=== PATIENT | male | born 1965 | race Caucasian/White ===

== ENCOUNTER 2020-11-08 14:56 | Outpatient (REF) | payer OTHER, SELFPAY ==
[2020-11-08 16:45] LABS: Estimated Average Glucose 108 mg/dL; Hemoglobin A1c % 5.4 %
[2020-11-08 17:07] LABS: Alanine Aminotransferase 36 U/L (0-40); Albumin Level 4.6 g/dL (3.5-5.0); Alkaline Phosphatase 69 U/L (39-117); Anion Gap 18 (12-20); Aspartate Amino Transferase 30 U/L (5-37); Bilirubin Total 0.9 mg/dL (0.0-1.0); Blood Urea Nitrogen 12 mg/dL (9-16); Calcium 9.1 mg/dL (8.4-10.2); Carbon Dioxide 22 mmol/L (22-29); Chloride 103 mmol/L (96-108); Estimated Glomerular Filt Rate > 60; Glucose Random 80 mg/dL (60-115); Potassium 4.9 mmol/l (3.3-5.1); Sodium 138 mmol/L (135-145); Total Protein 7.6 g/dL (6.5-8.0)
== END 2020-11-08 14:57 | disposition home or self-care (01) ==
LOC: HO.HMGCLDS 14:56
PROVIDERS: PCP Internal Medicine; Visit Provider Internal Medicine
DX: I10 Essential (primary) hypertension (principal); R73.09 Other abnormal glucose
CPT/HCPCS: 36415; 80053; 83036

== ENCOUNTER 2021-05-28 15:07 | Outpatient (REF) | payer OTHER, SELFPAY ==
[2021-05-28 16:41] LABS: MANUAL DIFF FLAG NO
[2021-05-28 16:47] LABS: Basophils Absolute Auto 0.1 X10*3/uL (0.0-0.2); Basophils Percent Auto 0.6 % (0-2); Eosinophils Absolute Auto 0.3 X10*3/uL (0.0-0.4); Eosinophils Percent Auto 2.8 % (0-4); Hematocrit 46.2 % (42-52); Hemoglobin 15.8 g/dl (14.0-18.0); Imm Gran Abs Auto 0.11 X10*3/uL (0.00-0.03); Imm Gran Pct Auto 1.2 % (0.0-0.4); Lymphocytes Absolute Auto 2.6 X10*3/uL (1.2-4.9); Lymphocytes Percent Auto 28.1 % (20-40); Mean Corpuscular HGB Conc 34.2 g/dl (31.0-36.0); Mean Corpuscular Hemoglobin 33.3 pg (27.0-33.0); Mean Corpuscular Volume 97.3 fL (80-98); Mean Platelet Volume 10.9 fL (9.4-12.4); Monocytes Absolute Auto 0.8 X10*3/uL (0.1-1.2); Monocytes Percent Auto 8.3 % (2-11); Neutrophils Absolute Auto 5.6 X10*3/uL (2.0-8.3); Platelet Count 276 X10*3/uL (160-400); Red Blood Count 4.75 X10*6/uL (4.60-5.80); Red Cell Distribution Width 12.3 % (11.0-16.0); White Blood Count 9.4 X10*3/uL (4.8-10.8)
[2021-05-28 17:11] LABS: Alanine Aminotransferase 48 U/L (0-40); Albumin Level 4.4 g/dL (3.5-5.0); Alkaline Phosphatase 72 U/L (39-117); Anion Gap 15 (12-20); Aspartate Amino Transferase 37 U/L (5-37); Bilirubin Total 0.9 mg/dL (0.0-1.0); Blood Urea Nitrogen 12 mg/dL (9-16); Calcium 9.3 mg/dL (8.4-10.2); Carbon Dioxide 24 mmol/L (22-29); Chloride 105 mmol/L (96-108); Estimated Glomerular Filt Rate > 60; Glucose Random 80 mg/dL (60-115); Sodium 139 mmol/L (135-145); Total Protein 7.1 g/dL (6.5-8.0)
== END 2021-05-28 15:08 | disposition home or self-care (01) ==
LOC: HO.HMGCLDS 15:07
PROVIDERS: PCP Internal Medicine; Visit Provider Internal Medicine
DX: I10 Essential (primary) hypertension (principal)
CPT/HCPCS: 36415; 80053; 85025

== ENCOUNTER → 2021-07-29 14:51 | Outpatient (BNVA) | payer OTHER, SELFPAY | PROVIDERS: PCP Internal Medicine; Referring Provider Internal Medicine; Visit Provider Internal Medicine ==

== ENCOUNTER → 2021-09-03 13:46 | Outpatient (REF) | payer OTHER, SELFPAY ==
--- NOTE | 2021-09-03 13:52 | CA_ITS ---
Transthoracic Echocardiogram Patient (Last, First, Middle): Mp Gr R Gender: Male Date of : 1965 Age: 55 Procedure Date: 09/03/2021 Procedure Type: Transthoracic Echocardiogram Location: OP Height: 172.72 cm Weight: 89.36 kg BSA: 2.03 m2 Heart Rate: bpm BP: 120 / 58 mmHg Store Loss Prevention Manager: MAURICIO Referring MD: Pa Molina MD Ingot Weigher: Luc Connors MD Symptoms: R09.89 - Other specified symptoms and signs involving the... Study Quality: Fair ECG Rhythm: Sinus Conclusions: - 1. Normal LV systolic function with impaired relaxation filling pattern next 2. Mild aortic stenosis 3. No gross pericardial effusion Findings Left Ventricle Normal left ventricular size and systolic function. There is mildly increased left ventricular wall thickness. The visually estimated ejection fraction is between 60-65%. Spectral Doppler is indicative of an impaired relaxation filling pattern. E/E prime ratio is between 8 and 15 consistent with indeterminate filling pressures. Right Ventricle Normal right ventricular cavity size and systolic function. Atria The left atrium is normal in size. Interatrial shunt cannot be excluded. The right atrium was not well visualized. Aortic Valve The aortic valve was not well visualized. There is mild aortic valve stenosis. The peak aortic gradient is 26 mmHg.The mean gradient is 15 mmHg. The aortic valve area is 1.67 cm2. There is no aortic valve regurgitation. Mitral Valve Likely normal mitral valve structure and function. There is trace mitral valve regurgitation. There is no mitral valve stenosis. Pulmonic Valve The pulmonic valve was not well visualized. Tricuspid Valve The tricuspid valve was not well visualized. Tricuspid regurgitation envelope is inadequate for calculation of right ventricular systolic pressure. Great Vessels All visible segments of the aorta are normal in size. The pulmonary artery was not well visualized. Venous The inferior vena cava is normal in size and collapses greater than 50% with inspiration. Pericardium/Pleural There is no evidence of pericardial effusion. Prior Study Comparison Changes noted compared to prior study dated: 01/24/2017. Mild aortic stenosis is present Measurements 2D Linear Measurements IVSd: 1.18 0.6-0.9/0.6-1.0 cm LVIDd: 3.98 3.9-5.3/4.2-5.9 cm LVIDd Index: 1.96 2.4-3.2/2.2-3.1 cm/m2 LVIDs: 2.51 2.0-3.6 cm LVPWd: 1.08 0.7-1.1 cm Ao Root: 3.30 2.1-3.5 cm LA Diam: 2.80 2.7-3.8/3.0-4.0 cm LAIDs Index: 1.38 1.5-2.3 cm/m2 LV Mass: 187.12 67-162/88-224 g LV Mass Index: 92.18 43-95/49-115 g/m2 LVOT Diam: 2.10 3.0+(-)1.3 cm 2D Systolic Function EF 4C: 63.30 >55% EF 2C: 79.80 >55% EF BiP: 72.40 >55% Mitral Valve MV Pk E: 0.65 MV PK A: 0.75 MV Decel Time: 185.00 E/A: 0.90 E'Lateral: 6.96 E'Medial: 6.53 E/E' Med: 9.90 E/E' Lat: 9.30 PHT: 54.00 MVA PHT: 4.07 Decel [place]: 3.51 Aortic Valve AoV Pk Ace: 2.56 AoV Mn Ace: 1.76 AoV VTI: 0.50 AoV Pk Grad: 26.00 Aov Mn Grad: 15.00 MIGUEL ÁNGEL Cont.VTI: 1.67 AI Pk Ace: 4.45 AI [place]: 1.60 LVOT LVOT Pk Ace: 1.20 LVOT Mn Ace: 0.73 LVOT VTI: 0.24 LVOT Pk Grad: 6.00 LVOT Mn Grad: 3.00 LVOT Diam: 2.10 LVOT Area: 3.46 Diastolic Function MV Pk E: 0.65 MV Pk A: 0.75 E/A: 0.90 E'Medial: 6.53 E/E' Med: 9.90 E' Laterial: 6.96 E/E' Lat: 9.30 Right Ventricle TAPSE (mm): 2.40 Tricuspid Valve RA Press: 3.00 Great Vessels Aorta Ao Root-2D: 3.30 2.0-3.7 cm Ao Asc: 3.20 2.1-3.4 cm Updated in Other Vendor System with Status of Final Luc Connors MD electronically signed on 09/03/2021 4:13:13 PM with status of Final
== END ==
LOC: HO.CARD 13:46
PROVIDERS: PCP Internal Medicine; Visit Provider Internal Medicine
DX: R09.89 Other specified symptoms and signs involving the circulatory and respiratory systems (principal)
CPT/HCPCS: 93306; Q9957

== ENCOUNTER → 2021-10-22 14:17 | Outpatient (BNVA) | payer OTHER, SELFPAY | PROVIDERS: PCP Internal Medicine; Referring Provider Internal Medicine; Visit Provider Internal Medicine ==

== ENCOUNTER → 2022-10-22 14:17 | Outpatient (BNVA) | payer OTHER, SELFPAY | PROVIDERS: PCP Internal Medicine; Referring Provider Internal Medicine; Visit Provider Internal Medicine | DX: I35.0 Nonrheumatic aortic (valve) stenosis (principal); I10 Essential (primary) hypertension | CPT/HCPCS: 93005 ==

== ENCOUNTER 2022-10-24 09:47 | Outpatient (REF) | payer OTHER, SELFPAY ==
[2022-10-24 12:08] LABS: Anion Gap 12 (12-20); Blood Urea Nitrogen 11 mg/dL (9-16); Calcium 9.8 mg/dL (8.4-10.2); Carbon Dioxide 26 mmol/L (22-29); Chloride 106 mmol/L (96-108); Estimated Glomerular Filt Rate > 60; Glucose Random 106 mg/dL (60-115); Potassium 5.1 mmol/L (3.3-5.1); Sodium 139 mmol/L (135-145)
== END 2022-10-24 09:48 | disposition home or self-care (01) ==
LOC: HO.HMGCLDS 09:47
PROVIDERS: PCP Internal Medicine; Visit Provider Internal Medicine
DX: I10 Essential (primary) hypertension (principal)
CPT/HCPCS: 36415; 80048

== ENCOUNTER 2023-02-09 14:09 | Outpatient (REF) | payer OTHER, SELFPAY | END 2023-02-09 14:10 | disposition home or self-care (01) | LOC: HO.SH 14:09 | PROVIDERS: Visit Provider Internal Medicine | DX: Z01.118 Encounter for examination of ears and hearing with other abnormal findings (principal); H90.3 Sensorineural hearing loss, bilateral | CPT/HCPCS: 92557; 92567 ==

== ENCOUNTER 2023-06-17 14:22 | Outpatient (REF) | payer OTHER, SELFPAY ==
[2023-06-17 16:20] LABS: Alanine Aminotransferase 32 U/L (0-40); Albumin Level 4.3 g/dL (3.5-5.0); Alkaline Phosphatase 71 U/L (39-117); Anion Gap 13 (12-20); Aspartate Amino Transferase 26 U/L (5-37); Blood Urea Nitrogen 12 mg/dL (9-16); Calcium 9.1 mg/dL (8.4-10.2); Carbon Dioxide 25 mmol/L (22-29); Chloride 107 mmol/L (96-108); Estimated Glomerular Filt Rate > 60; Glucose Random 86 mg/dL (60-115); Potassium 4.6 mmol/L (3.3-5.1); Sodium 140 mmol/L (135-145); Total Protein 7.2 g/dL (6.5-8.0)
== END 2023-06-17 14:23 | disposition home or self-care (01) ==
LOC: HO.HMGCLDS 14:22
PROVIDERS: PCP Internal Medicine; Visit Provider Internal Medicine
DX: I10 Essential (primary) hypertension (principal)
CPT/HCPCS: 36415; 80053

== ENCOUNTER 2023-07-03 14:06 | Outpatient (AMB) | payer OTHER, SELFPAY ==
[2023-07-03 14:07] VITALS: BP 134/62; PULSE 76; O2SAT 97; BMI 30.6
--- NOTE | 2023-07-03 14:07 | MHC.PC.OV ---
Vital Signs 07/03/23 14:07 Height 5 ft 8 in Weight 201 lb 6 oz BMI 30.6 BP 134/62 Blood Pressure Location Rt brachial Position Sitting Pulse 76 Pulse Source Pulse Oximeter Pulse Oximetry (%) 97 Oxygen Delivery Method Room Air Intake Visit Reasons: 4m follow up Allergies No Known Allergies Allergy (Unknown, Verified 07/03/23 14:08) Medication List - Last Reconciled 07/03/23 by Tonya Boucher MD albuterol sulfate 90 mcg/actuation (Ventolin HFA) 1 inh inhalation QID PRN 30 days amlodipine 10 mg PO DAILY aspirin (Adult Low Dose Aspirin) 81 mg PO DAILY atenolol 25 mg PO DAILY 90 days lisinopril 40 mg PO DAILY Tobacco use date assessed: 07/03/23 Dental Screening Dental Screen Date: 07/03/23 Did you have a dental visit in the last 12 months?: No Did you have a dental problem in the last 6 months where you did not have access to dental care?: No Was dental information given to patient?: No HPI 4m follow up HPI Details Patient is a 57-year-old gentleman came in today for his regular follow-up appointment Labs done recently reviewed with the patient Patient has stop smoking it has been 2 days, he is feeling jittery and restless I have sent Xanax 0.25 mg tablets to be taken up to 2 times a day as needed just to get him through this jittery phase. Patient was notified the medication will cause some drowsiness, do not drive or work with machine while taking this medication. And this is a temporary medication we will not be continuing it for the long-term use. Blood pressure is stable today he is on amlodipine 10 mg, atenolol 25 mg and lisinopril 40 mg, tolerating medication no side effect Still has not been able to schedule colonoscopy I have sent message to Gastroenterology office BMI is elevated at 30.6 patient need to lose weight Patient has appointment in December for physical examination he will return then. [facility] Medical History Fluctuating blood pressure Pre-diabetes Surgical History H/O hemorrhoidectomy Family History Sister Cardiovascular disorder Father Heart attack Social History Housing: Apartment Alcohol intake: never Patient Tobacco Use Status: Current everyday Tobacco user Tobacco use type: Cigarette Cigarettes Per Day: 10 Years Smoked: 40 years Packs per year/per ci.00 e-Cigarette/Vaping Use: Never Used service: No Current occupational status: employed Cognitive needs: No Hearing needs: No Vision needs: Yes Questionnaire PHQ-9 Over the last 2 weeks, how often have you been bothered by any of the following problems? 1. Little interest or pleasure in doing things: not at all 2. Feeling down, depressed, or hopeless: not at all 3. Trouble falling or staying asleep, or sleeping too much: not at all 4. Feeling tired or having little energy: not at all 5. Poor appetite or overeating: not at all 6. Feeling bad about yourself - or that you are a failure or have let yourself or your family down: not at all 7. Trouble concentrating on things, such as reading the newspaper or watching television: not at all 8. Moving or speaking so slowly that other people could have noticed. Or the opposite - being so fidgety or restless that you have been moving around a lot more than usual: not at all 9. Thoughts that you would be better off or of hurting yourself in some way: not at all Total score: 0 Depression Screening Interpretation: Negative 16143 - PHQ-9 Billing: Yes Source: Developed by Drs. Anthony Khoury, Ned Worthy and colleagues, with an educational aden from [employer]. Thrive Questionnaire Date Thrive assessed: 12/02/22 AUDIT C Alcohol Use Questionnaire (AUDIT-C) 1. How often do you have a drink containing alcohol?: Monthly or less 2. How many drinks containing alcohol do you have on a typical day when you are drinking?: 1 or 2 3. How often do you have six or more drinks on one occasion?: Never Total Score: 1 Score Reviewed/Action Taken: Yes LESIA-7 AMB Questionnaire LESIA-7 Date LESIA - 7 assessed: 12/02/22 Source: Developed by Drs. Anthony L. Leanna Khoury, Ned Lovell and colleagues, with an educational aden from [employer]. Review of Systems Const Denies chills and Denies fever(s) ENT Denies epistaxis and Denies nasal discharge Card Denies chest pain Resp Denies chest congestion, Denies cough and Denies hemoptysis GI Denies diarrhea and Denies nausea Skin/Breast Denies rash Neuro Reports no additional complaints Psych Reports no additional complaints Endo Reports no additional complaints Physical exam (Primary Care) Vital Signs: Last Vital Signs Pulse 76 07/03/23 14:07 BP 134/62 07/03/23 14:07 Pulse Ox 97 07/03/23 14:07 Oxygen Delivery Method Room Air 07/03/23 14:07 BMI result Body Mass Index 30.6 Tobacco/Smoking Status: Tobacco use Status Tobacco use date assessed 07/03/23 07/03/23 14:08 Patient Tobacco Use Status Current everyday Tobacco 07/03/23 14:08 Tobacco use type Cigarette 07/03/23 14:08 e-Cigarette/Vaping Use Never Used 07/03/23 14:08 PHQ-9: PHQ-9 Score PHQ-9: Total score 0 07/03/23 14:28 Depression Screening Interpretation: Negative Thrive Assessment: Date of Thrive Assessment Date Thrive assessed 12/02/22 07/03/23 14:08 Const General: cooperative, comfortable and no acute distress Orientation/consciousness: patient oriented x3 HENMT Head: Yes normocephalic Eyes General: appearance normal, both eyes and all related structures Neck Neck: Yes supple Resp Effort & Inspection: normal respiratory effort, no cough and no stridor Cardio Rhythm: regular rhythm Heart sounds: S1 normal heart sound present and S2 normal heart sound present Skin General skin exam: turgor normal Neuro General: patient oriented x3, tone normal and moves all extremities Extrem Right lower extremity: no edema Left lower extremity: no edema Assessment and Plan Assessment & Plan (1) Hypertension, essential: Code(s): I10 - Essential (primary) hypertension (2) Obesity due to excess calories: Code(s): E66.09 - Other obesity due to excess calories Qualifiers: Body mass index: BMI 30.0-30.9 Obesity classification: adult class 1 (BMI 30 - 34.9) Serious obesity comorbidity presence: with serious comorbidity Qualified Code(s): E66.09 - Other obesity due to excess calories; Z68.30 - Body mass index [BMI] 30.0-30.9, adult (3) Restlessness and agitation: Code(s): R45.1 - Restlessness and agitation Plan Patient is a 57-year-old gentleman came in today for his regular follow-up appointment Labs done recently reviewed with the patient Patient has stop smoking it has been 2 days, he is feeling jittery and restless I have sent Xanax 0.25 mg tablets to be taken up to 2 times a day as needed just to get him through this jittery phase. Patient was notified the medication will cause some drowsiness, do not drive or work with machine while taking this medication. And this is a temporary medication we will not be continuing it for the long-term use. Blood pressure is stable today he is on amlodipine 10 mg, atenolol 25 mg and lisinopril 40 mg, tolerating medication no side effect Still has not been able to schedule colonoscopy I have sent message to Gastroenterology office BMI is elevated at 30.6 patient need to lose weight Patient has appointment in December for physical examination he will return then. Medications: New alprazolam (Xanax) 0.25 mg PO BID PRN 20 tabs 0RF Restlessness 10 days Coding Level of Care Code Est Pt Level 3 (98123) Diagnoses Hypertension, essential I10 Obesity due to excess calories E66.09; Z68.30 Body mass index: BMI 30.0-30.9 Obesity classification: adult class 1 (BMI 30 - 34.9) Serious obesity comorbidity presence: with serious comorbidity Restlessness and agitation R45.1
== END 2023-07-03 14:24 | disposition home or self-care (01) ==
PROVIDERS: Visit Provider Internal Medicine
DX: I10 Essential (primary) hypertension (principal); E66.09 Other obesity due to excess calories; Z68.30 Body mass index [BMI] 30.0-30.9, adult; R45.1 Restlessness and agitation
CPT/HCPCS: 99213

== ENCOUNTER → 2023-09-21 14:40 | Outpatient (BNVA) | payer OTHER, SELFPAY | PROVIDERS: PCP Internal Medicine; Visit Provider Nurse Practitioner Family ==

== ENCOUNTER 2023-12-04 14:26 | Outpatient (AMB) | payer OTHER, SELFPAY ==
--- NOTE | 2023-12-04 14:29 | MHC.PC.OV ---
Vital Signs 12/04/23 14:34 Height 5 ft 8 in Weight 204 lb 2 oz BMI 31.0 BP 148/68 H Blood Pressure Location Rt brachial Position Sitting Pulse 91 Pulse Source Pulse Oximeter Pulse Oximetry (%) 98 Oxygen Delivery Method Room Air Intake Visit Reasons: PE Allergies No Known Allergies Allergy (Unknown, Verified 12/04/23 14:36) Medication List - Last Reconciled 12/04/23 by Tonya Boucher MD amlodipine 10 mg PO DAILY aspirin (Adult Low Dose Aspirin) 81 mg PO DAILY atenolol 25 mg PO DAILY 90 days lisinopril 40 mg PO DAILY Tobacco use date assessed: 12/04/23 HPI PE HPI Details Patient is 58-year-old gentleman came in today physical examination Blood pressure is slightly elevated however patient is taking all his medications He is due for labs, order placed patient notified to do it fasting He is feeling sick today with a sore throat that started last night Having slight chills and cough which is mostly dry We have taken COVID and flu test further management after the report Meanwhile patient may take [id number] cough syrup tell some 1 tsp b.i.d. And Tylenol as needed for aches and pains, push fluids and rest Patient is requesting Chantix script, he has taken it in the past and did well [facility] Medical History Fluctuating blood pressure Pre-diabetes Surgical History Hx of colonoscopy H/O hemorrhoidectomy Family History Sister Cardiovascular disorder Father Heart attack Social History Housing: Apartment Alcohol intake: never Patient Tobacco Use Status: Current everyday Tobacco user Tobacco use type: Cigarette Cigarettes Per Day: 10 Years Smoked: 40 years Packs per year/per ci.00 e-Cigarette/Vaping Use: Never Used service: No Current occupational status: employed Cognitive needs: No Hearing needs: No Vision needs: Yes Questionnaire Thrive Questionnaire Date Thrive assessed: 12/02/22 LESIA-7 AMB Questionnaire LESIA-7 Date LESIA - 7 assessed: 01/31/23 Source: Developed by Drs. Anthony Khoury, Leanna Dominguez, Ned Lovell and colleagues, with an educational aden from [employer]. Review of Systems Const Denies headache(s) Eyes Denies blurry vision ENT Denies headache(s), Denies nasal discharge, Denies nasal obstruction, Denies odynophagia and Denies sinus pain Card Denies chest pain at rest and Denies chest pain with activity Resp Denies hemoptysis GI Denies diarrhea, Denies odynophagia, Denies vomiting and Denies hematemesis Reports as per HPI Musc Denies abnormal gait Skin/Breast Reports as per HPI Neuro Denies Neuro-related abnormal movements, Denies Abnormal speech present, Denies abnormal gait, Denies headache(s) and Denies Sensory deficit (Neuro) Psych Denies mood swings and Denies paranoia Endo Reports as per HPI Leonel/Lymph Reports as per HPI Aller/Immun Reports as per HPI Physical exam (Primary Care) Vital Signs: Last Vital Signs Pulse 91 12/04/23 14:34 BP 148/68 H 12/04/23 14:34 Pulse Ox 98 12/04/23 14:34 Oxygen Delivery Method Room Air 12/04/23 14:34 BMI result Body Mass Index 31.0 Tobacco/Smoking Status: Tobacco use Status Tobacco use date assessed 12/04/23 12/04/23 14:37 Patient Tobacco Use Status Current everyday Tobacco 12/04/23 14:30 Tobacco use type Cigarette 12/04/23 14:30 e-Cigarette/Vaping Use Never Used 12/04/23 14:30 Thrive Assessment: Date of Thrive Assessment Date Thrive assessed 12/02/22 12/04/23 14:30 Const General: cooperative, comfortable and no acute distress Orientation/consciousness: patient oriented x3 HENMT Head: Yes normocephalic and Yes atraumatic Eyes General: appearance normal, both eyes and all related structures Pupils: Equal, round and reactive pupils present EOM: EOMs intact bilaterally Neck Neck: Yes supple and No lymphadenopathy Thyroid: Thyroid normal Lymphatic: no lymphadenopathy noted Resp Effort & Inspection: normal respiratory effort and able to speak in complete sentences Auscultation: clear to auscultation bilaterally Cardio Heart sounds: S1 normal heart sound present and S2 normal heart sound present GI Palpation (GI): Soft to palpation and nontender Auscultation: normal bowel sounds General: Yes no CVA tenderness Back/Spine/Pelvis Back: no CVA tenderness Skin General skin exam: elasticity normal and turgor normal Neuro General: patient oriented x3 and gait normal Cranial nerves: Yes Equal, round and reactive pupils present Speech: No Abnormal speech present Sensory Exam: No Sensory deficit (Neuro) Coordination: tandem gait normal and Romberg test negative Extrem General: Yes normal exam except as noted and No edema Assessment and Plan Assessment & Plan (1) Encounter for general adult medical examination with abnormal findings: Code(s): Z00.01 - Encounter for general adult medical examination with abnormal findings (2) Hypertension, essential: Code(s): I10 - Essential (primary) hypertension (3) Tobacco abuse: Code(s): Z72.0 - Tobacco use (4) Obesity due to excess calories: Code(s): E66.09 - Other obesity due to excess calories Qualifiers: Body mass index: BMI 30.0-30.9 Obesity classification: adult class 1 (BMI 30 - 34.9) Serious obesity comorbidity presence: with serious comorbidity Qualified Code(s): E66.09 - Other obesity due to excess calories; Z68.30 - Body mass index [BMI] 30.0-30.9, adult (5) URI (upper respiratory infection): Code(s): J06.9 - Acute upper respiratory infection, unspecified Qualifiers: URI type: unspecified viral URI Qualified Code(s): J06.9 - Acute upper respiratory infection, unspecified Plan Patient is 58-year-old gentleman came in today physical examination Blood pressure is slightly elevated however patient is taking all his medications He is due for labs, order placed patient notified to do it fasting He is feeling sick today with a sore throat that started last night Having slight chills and cough which is mostly dry We have taken COVID and flu test further management after the report Meanwhile patient may take [id number] cough syrup tell some 1 tsp b.i.d. And Tylenol as needed for aches and pains, push fluids and rest Patient is requesting Chantix script, he has taken it in the past and did well Orders: Orders Comprehensive [place]. Panel Fast Today E66.09 - Other obesity due to excess calories, I10 - Essential (primary) hypertension, Z00.01 - Encounter for general adult medical examination with abnormal findings, Z72.0 - Tobacco use Lipid Panel Today E66.09 - Other obesity due to excess calories, I10 - Essential (primary) hypertension, Z00.01 - Encounter for general adult medical examination with abnormal findings, Z72.0 - Tobacco use Complete Blood Count Auto Diff Today E66.09 - Other obesity due to excess calories, I10 - Essential (primary) hypertension, Z00.01 - Encounter for general adult medical examination with abnormal findings, Z72.0 - Tobacco use SARS-CoV2/FLU/RSV Today R09.89 - Other specified symptoms and signs involving the circulatory and respiratory systems Medications: New varenicline (Chantix Starting Month Box) PO PER PKG DIR 53 ea 0RF Coding Level of Care Code Est Pt Prev Care 40-64y(58974) Diagnoses Encounter for general adult medical examination with abnormal findings Z00.01 Hypertension, essential I10 Tobacco abuse Z72.0 Class 1 obesity due to excess calories with serious comorbidity and body mass index (BMI) of 30.0 to 30.9 in adult E66.09; Z68.30 Body mass index: BMI 30.0-30.9 Obesity classification: adult class 1 (BMI 30 - 34.9) Serious obesity comorbidity presence: with serious comorbidity Viral upper respiratory tract infection J06.9 URI type: unspecified viral URI
[2023-12-04 14:34] VITALS: BP 148/68; PULSE 91; O2SAT 98; BMI 31.0
== END 2023-12-04 16:21 | disposition home or self-care (01) ==
PROVIDERS: Visit Provider Internal Medicine
DX: Z00.00 Encounter for general adult medical examination without abnormal findings (principal); I10 Essential (primary) hypertension; Z68.30 Body mass index [BMI] 30.0-30.9, adult; J06.9 Acute upper respiratory infection, unspecified; Z72.0 Tobacco use; E66.09 Other obesity due to excess calories
CPT/HCPCS: 99396

== ENCOUNTER 2023-12-04 17:07 | Outpatient (REF) | payer OTHER, SELFPAY ==
[2023-12-04 17:56] LABS: Influenza A PCR NEGATIVE (Negative); Influenza B PCR NEGATIVE (Negative); Resp Syncy Virus RNA Qual PCR NEGATIVE (Negative); SARS COV2 PCR INHOUSE POSITIVE (Negative)
== END 2023-12-04 17:08 | disposition home or self-care (01) ==
LOC: HO.LNP 17:07
PROVIDERS: Visit Provider Internal Medicine
DX: Z11.52 Encounter for screening for COVID-19 (principal); Z20.822 Contact with and (suspected) exposure to COVID-19; R09.89 Other specified symptoms and signs involving the circulatory and respiratory systems
CPT/HCPCS: 0241U

== ENCOUNTER 2024-01-02 08:12 | Outpatient (REF) | payer OTHER, SELFPAY ==
[2024-01-02 11:47] LABS: MANUAL DIFF FLAG NO
[2024-01-02 12:00] LABS: Basophils Percent Auto 0.8 % (0-2); Eosinophils Absolute Auto 0.2 X10*3/uL (0.0-0.4); Eosinophils Percent Auto 4.6 % (0-4); Hematocrit 51.9 % (42.0-52.0); Hemoglobin 17.9 g/dl (14.0-18.0); Imm Gran Abs Auto 0.02 X10*3/uL (0.00-0.03); Imm Gran Pct Auto 0.4 % (0.0-0.4); Lymphocytes Absolute Auto 1.7 X10*3/uL (1.2-4.9); Lymphocytes Percent Auto 31.8 % (20-40); Mean Corpuscular HGB Conc 34.5 g/dl (31.0-36.0); Mean Corpuscular Hemoglobin 34.9 pg (27.0-33.0); Mean Corpuscular Volume 101.2 fL (80.0-98.0); Mean Platelet Volume 10.4 fL (9.4-12.4); Monocytes Absolute Auto 0.6 X10*3/uL (0.1-1.2); Monocytes Percent Auto 11.3 % (2-11); Neutrophils Absolute Auto 2.7 x10*3/uL (2.0-8.3); Neutrophils Percent Auto 51.1 % (45-73); Platelet Count 190 X10*3/uL (160-400); Red Blood Count 5.13 X10*6/uL (4.60-5.80); Red Cell Distribution Width 14.5 % (11.0-16.0); White Blood Count 5.2 X10*3/uL (4.8-10.8)
[2024-01-02 12:14] LABS: Alanine Aminotransferase 27 U/L (0-40); Alkaline Phosphatase 93 U/L (39-117); Anion Gap 12 (12-20); Aspartate Amino Transferase 26 U/L (5-37); Bilirubin Total 0.8 mg/dL (0.0-1.0); Blood Urea Nitrogen 9 mg/dL (9-16); Calcium 9.4 mg/dL (8.4-10.2); Carbon Dioxide 25 mmol/L (22-29); Chloride 109 mmol/L (96-108); Cholesterol 146 mg/dL (<200); Estimated Glomerular Filt Rate > 60; Glucose Fasting 119 mg/dL (60-99); HDL Cholesterol 39 mg/dL (>40); LDL Cholesterol Calculated 86 mg/dL (<100); Potassium 4.7 mmol/L (3.3-5.1); Sodium 141 mmol/L (135-145); Triglycerides 109 mg/dL (<150)
== END 2024-01-02 08:13 | disposition home or self-care (01) ==
LOC: HO.HMGCLDS 08:12
PROVIDERS: PCP Internal Medicine; Visit Provider Internal Medicine
DX: Z00.01 Encounter for general adult medical examination with abnormal findings (principal); I10 Essential (primary) hypertension; E66.09 Other obesity due to excess calories; Z72.0 Tobacco use
CPT/HCPCS: 36415; 80053; 80061; 85025

== ENCOUNTER 2024-01-27 15:10 | Outpatient (AMB) | payer OTHER, SELFPAY ==
[2024-01-27 15:13] VITALS: BP 138/62; PULSE 79; O2SAT 96; BMI 30.4
--- NOTE | 2024-01-27 15:13 | MHC.PC.OV ---
Vital Signs 01/27/24 15:13 Height 5 ft 8 in Weight 200 lb 2 oz BMI 30.4 BP 138/62 Blood Pressure Location Rt brachial Position Sitting Pulse 79 Pulse Source Pulse Oximeter Pulse Oximetry (%) 96 Oxygen Delivery Method Room Air Intake Visit Reasons: F/u ~ Allergies No Known Allergies Allergy (Unknown, Verified 01/27/24 15:13) Medication List - Last Reconciled 01/27/24 by Tonya Boucher MD amlodipine 10 mg PO DAILY aspirin (Adult Low Dose Aspirin) 81 mg PO DAILY atenolol 25 mg PO DAILY 90 days lisinopril 40 mg PO DAILY varenicline (Chantix Starting Month Box) PO PER PKG DIR Tobacco use date assessed: 01/27/24 Dental Screening Dental Screen Date: 01/27/24 Did you have a dental visit in the last 12 months?: Yes Did you have a dental problem in the last 6 months where you did not have access to dental care?: No Was dental information given to patient?: Patient has dentist HPI F/u ~ HPI Details Patient is 58-year-old gentleman came in today for his follow-up appointment He was started on Chantix last visit he is doing very well he is now down to 6 cigarettes a day I have sent continuing Chantix pack, patient may continue that until seen next in 4 months Labs done recently reviewed with the patient His fasting sugar came back at 119, he does have a family history of diabetes We talked about the diet-controlled His BMI is elevated need to lose some weight Blood pressure is stable patient is taking amlodipine 10 mg, and atenolol 25 mg along with lisinopril 40 mg No side effects. Patient will return in 4 months for follow-up appointment [facility] Medical History Fluctuating blood pressure Pre-diabetes Surgical History Hx of colonoscopy H/O hemorrhoidectomy Family History Sister Cardiovascular disorder Father Heart attack Social History Housing: Apartment Alcohol intake: never Patient Tobacco Use Status: Current everyday Tobacco user Tobacco use type: Cigarette Cigarettes Per Day: 10 Years Smoked: 40 years e-Cigarette/Vaping Use: Never Used service: No Current occupational status: employed Cognitive needs: No Hearing needs: No Vision needs: Yes Questionnaire Thrive Questionnaire Date Thrive assessed: 12/02/22 LESIA-7 AMB Questionnaire LESIA-7 Date LESIA - 7 assessed: 12/02/22 Source: Developed by Drs. Anthony Khoury, Leanna Dominguez, Ned Lovell and colleagues, with an educational aden from [employer]. Review of Systems Const Denies chills and Denies fever(s) ENT Denies epistaxis and Denies nasal discharge Card Denies chest pain Resp Denies chest congestion, Denies cough and Denies hemoptysis GI Denies diarrhea and Denies nausea Skin/Breast Denies rash Neuro Reports no additional complaints Psych Reports no additional complaints Endo Reports no additional complaints Physical exam (Primary Care) Vital Signs: Last Vital Signs Pulse 79 01/27/24 15:13 BP 138/62 01/27/24 15:13 Pulse Ox 96 01/27/24 15:13 Oxygen Delivery Method Room Air 01/27/24 15:13 BMI result Body Mass Index 30.4 Tobacco/Smoking Status: Tobacco use Status Tobacco use date assessed 01/27/24 01/27/24 15:18 Patient Tobacco Use Status Current everyday Tobacco 01/27/24 15:18 Tobacco use type Cigarette 01/27/24 15:18 e-Cigarette/Vaping Use Never Used 01/27/24 15:18 Thrive Assessment: Date of Thrive Assessment Date Thrive assessed 12/02/22 01/27/24 15:18 Const General: cooperative, comfortable and no acute distress Orientation/consciousness: patient oriented x3 HENMT Head: Yes normocephalic Eyes General: appearance normal, both eyes and all related structures Neck Neck: Yes supple Resp Effort & Inspection: normal respiratory effort, no cough and no stridor Cardio Rhythm: regular rhythm Heart sounds: S1 normal heart sound present and S2 normal heart sound present Skin General skin exam: turgor normal Neuro General: patient oriented x3, tone normal and moves all extremities Extrem Right lower extremity: no edema Left lower extremity: no edema Assessment and Plan Assessment & Plan (1) Hypertension, essential: Code(s): I10 - Essential (primary) hypertension (2) Tobacco abuse: Code(s): Z72.0 - Tobacco use (3) Obesity due to excess calories: Code(s): E66.09 - Other obesity due to excess calories Qualifiers: Obesity classification: adult class 1 (BMI 30 - 34.9) Serious obesity comorbidity presence: with serious comorbidity Body mass index: BMI 30.0-30.9 Qualified Code(s): E66.09 - Other obesity due to excess calories; Z68.30 - Body mass index [BMI] 30.0-30.9, adult (4) Pre-diabetes: Code(s): R73.03 - Prediabetes Plan Patient is 58-year-old gentleman came in today for his follow-up appointment He was started on Chantix last visit he is doing very well he is now down to 6 cigarettes a day I have sent continuing Chantix pack, patient may continue that until seen next in 4 months Labs done recently reviewed with the patient His fasting sugar came back at 119, he does have a family history of diabetes We talked about the diet-controlled His BMI is elevated need to lose some weight Blood pressure is stable patient is taking amlodipine 10 mg, and atenolol 25 mg along with lisinopril 40 mg No side effects. Patient will return in 4 months for follow-up appointment Medications: New varenicline (Chantix Continuing Month Box) 1 mg PO BID 90 days 180 tabs 0RF Discontinued varenicline (Chantix Starting Month Box) Discontinued Reason: Patient Completed Course PO PER PKG DIR 53 ea 0RF Coding Level of Care Code Est Pt Level 3 (74643) Diagnoses Hypertension, essential I10 Tobacco abuse Z72.0 Class 1 obesity due to excess calories with serious comorbidity and body mass index (BMI) of 30.0 to 30.9 in adult E66.09; Z68.30 Obesity classification: adult class 1 (BMI 30 - 34.9) Serious obesity comorbidity presence: with serious comorbidity Body mass index: BMI 30.0-30.9 Pre-diabetes R73.03
== END 2024-01-27 15:31 | disposition home or self-care (01) ==
PROVIDERS: PCP Internal Medicine; Visit Provider Internal Medicine
DX: I10 Essential (primary) hypertension (principal); Z72.0 Tobacco use; E66.09 Other obesity due to excess calories; Z68.30 Body mass index [BMI] 30.0-30.9, adult; R73.03 Prediabetes
CPT/HCPCS: 99213

== ENCOUNTER 2024-06-01 14:50 | Outpatient (AMB) | payer OTHER, SELFPAY ==
[2024-06-01 14:52] VITALS: BP 120/58; PULSE 63; O2SAT 96; BMI 30.6
--- NOTE | 2024-06-01 14:52 | A.OFFPC_ITS ---
Vital Signs 06/01/24 14:52 Height 5 ft 8 in Weight 201 lb 2 oz BMI 30.6 BP 120/58 L Blood Pressure Location Rt brachial Position Sitting Pulse 63 Pulse Source Pulse Oximeter Pulse Oximetry (%) 96 Oxygen Delivery Method Room Air Intake Visit Reasons: 3 month follow up Allergies No Known Allergies Allergy (Unknown, Verified 06/01/24 14:54) Medication List - Last Reconciled 06/01/24 by Tonya Boucher MD amlodipine 10 mg PO DAILY aspirin (Adult Low Dose Aspirin) 81 mg PO DAILY atenolol 25 mg PO DAILY 90 days lisinopril 40 mg PO DAILY varenicline (Chantix Continuing Month Box) 1 mg PO BID 90 days Tobacco use date assessed: 06/01/24 Dental Screening Dental Screen Date: 06/01/24 Did you have a dental visit in the last 12 months?: No Did you have a dental problem in the last 6 months where you did not have access to dental care?: No Was dental information given to patient?: No HPI 3 month follow up HPI Details Patient is 58-year-old gentleman came in today for his follow-up appointment Tobacco use disorder: he did well with Chantix and then he stopped using it and started smoking again patient says that he has no excuse he started Chantix again and is requesting a refill. Currently he is smoking about 5 cigarettes a day Labs needed before next visit order placed to be done fasting Patient is prediabetic, we are monitoring his sugar BMI is elevated I would strongly recommend for him to lose some weight and control his diet Blood pressure is stable patient is taking amlodipine 10 mg, and atenolol 25 mg along with lisinopril 40 mg No side effects. Patient will return in 4 months for follow-up appointment [facility] Medical History Fluctuating blood pressure Pre-diabetes Surgical History Hx of colonoscopy H/O hemorrhoidectomy Family History Sister Cardiovascular disorder Father Heart attack Social History Housing: Apartment Alcohol intake: never Patient Tobacco Use Status: Current everyday Tobacco user Tobacco use type: Cigarette Cigarettes Per Day: 10 Years Smoked: 40 years e-Cigarette/Vaping Use: Never Used service: No Current occupational status: employed Cognitive needs: No Hearing needs: No Vision needs: Yes Questionnaire PHQ-9 Over the last 2 weeks, how often have you been bothered by any of the following problems? 1. Little interest or pleasure in doing things: not at all 2. Feeling down, depressed, or hopeless: not at all 3. Trouble falling or staying asleep, or sleeping too much: not at all 4. Feeling tired or having little energy: not at all 5. Poor appetite or overeating: not at all 6. Feeling bad about yourself - or that you are a failure or have let yourself or your family down: not at all 7. Trouble concentrating on things, such as reading the newspaper or watching television: not at all 8. Moving or speaking so slowly that other people could have noticed. Or the opposite - being so fidgety or restless that you have been moving around a lot more than usual: not at all 9. Thoughts that you would be better off or of hurting yourself in some way: not at all Total score: 0 Depression Screening Interpretation: Negative Depression Screening Done: Yes 71205 - PHQ-9 Billing: Yes Source: Developed by Drs. Anthony Khoury, Leanna Dominguez, Ned Lovell and colleagues, with an educational aden from [employer]. Thrive Questionnaire Date Thrive assessed: 06/01/24 I am a: Patient What is your living situation today?: I have a steady place to live Within the past 12 months, did the food you bought not last and you didn't have the money to get more?: Never true Within the past 12 months, did you worry whether your food would run out before you got money to buy more?: Never true Do you have trouble paying for medicines?: No Do you have trouble getting transportation to medical appointments?: No Do you have trouble paying your heating and electricity bill?: No Do you have trouble taking care of your child, family member or friend?: No Do you have trouble with day-to-day activities such as bathing, preparing meals, shopping, managing finances, etc.?: No Are you currently unemployed and looking for a job?: No Are you interested in more education?: No Please select the resources that you would like help with: Housing/Retirement Currently or been in a relationship where the following occur: No concerns reported THRIVE Score: 0 AUDIT C Alcohol Use Questionnaire (AUDIT-C) 1. How often do you have a drink containing alcohol?: 2-4 times a month 2. How many drinks containing alcohol do you have on a typical day when you are drinking?: 1 or 2 3. How often do you have six or more drinks on one occasion?: Never Total Score: 2 Score Reviewed/Action Taken: Yes LESIA-7 AMB Questionnaire LESIA-7 Date LESIA - 7 assessed: 06/01/24 Feeling nervous, anxious, or on edge: 0 = Not at all Not being able to stop or control worryin = Not at all Worrying too much about different things: 0 = Not at all Trouble relaxin = Not at all Being so restless that it is hard to sit still: 0 = Not at all Becoming easily annoyed or irritable: 0 = Not at all Feeling afraid as if something awful might happen: 0 = Not at all Total LESIA-7 score (0-4 normal; 5-9 mild; 10-14 moderate; 15-21 severe): 0 Source: Developed by Drs. Anthony Khoury, Leanna Dominguez, Ned Lovell and colleagues, with an educational aden from [employer]. LESIA-7 Assessment Billing LESIA-7 Assessment Tool: LESIA-7 Assessment 90377 Review of Systems Const Denies chills and Denies fever(s) ENT Denies epistaxis and Denies nasal discharge Card Denies chest pain Resp Denies chest congestion, Denies cough and Denies hemoptysis GI Denies diarrhea and Denies nausea Skin/Breast Denies rash Neuro Reports no additional complaints Psych Reports no additional complaints Endo Reports no additional complaints Physical exam (Primary Care) Vital Signs: Last Vital Signs Pulse 63 06/01/24 14:52 BP 120/58 L 06/01/24 14:52 Pulse Ox 96 06/01/24 14:52 Oxygen Delivery Method Room Air 06/01/24 14:52 BMI result Body Mass Index 30.6 Tobacco/Smoking Status: Tobacco use Status Tobacco use date assessed 06/01/24 06/01/24 14:54 Patient Tobacco Use Status Current everyday Tobacco 06/01/24 14:54 Tobacco use type Cigarette 06/01/24 14:54 e-Cigarette/Vaping Use Never Used 06/01/24 14:54 PHQ-9: PHQ-9 Score PHQ-9: Total score 0 06/01/24 14:54 Depression Screening Interpretation: Negative Thrive Assessment: Date of Thrive Assessment Date Thrive assessed 06/01/24 06/01/24 14:54 Currently or been in a relationship where the following occur: No concerns reported Const General: cooperative, comfortable and no acute distress Orientation/consciousness: patient oriented x3 HENMT Head: Yes normocephalic Eyes General: appearance normal, both eyes and all related structures Neck Neck: Yes supple Resp Effort & Inspection: normal respiratory effort, no cough and no stridor Cardio Rhythm: regular rhythm Heart sounds: S1 normal heart sound present and S2 normal heart sound present Skin General skin exam: turgor normal Neuro General: patient oriented x3, tone normal and moves all extremities Extrem Right lower extremity: no edema Left lower extremity: no edema Assessment and Plan Assessment & Plan (1) Hypertension, essential: Code(s): I10 - Essential (primary) hypertension (2) Tobacco abuse: Code(s): Z72.0 - Tobacco use (3) Obesity due to excess calories: Code(s): E66.09 - Other obesity due to excess calories Qualifiers: Body mass index: BMI 30.0-30.9 Obesity classification: adult class 1 (BMI 30 - 34.9) Serious obesity comorbidity presence: with serious comorbidity Qualified Code(s): E66.09 - Other obesity due to excess calories; Z68.30 - Body mass index [BMI] 30.0-30.9, adult (4) Pre-diabetes: Code(s): R73.03 - Prediabetes Plan Patient is 58-year-old gentleman came in today for his follow-up appointment Tobacco use disorder: he did well with Chantix and then he stopped using it and started smoking again patient says that he has no excuse he started Chantix again and is requesting a refill. Currently he is smoking about 5 cigarettes a day Labs needed before next visit order placed to be done fasting Patient is prediabetic, we are monitoring his sugar BMI is elevated I would strongly recommend for him to lose some weight and control his diet Blood pressure is stable patient is taking amlodipine 10 mg, and atenolol 25 mg along with lisinopril 40 mg No side effects. Patient will return in 4 months for follow-up appointment Orders: Orders Comprehensive Severance. Panel Fast Today E66.09 - Other obesity due to excess calories, I10 - Essential (primary) hypertension, R73.03 - Prediabetes, Z68.30 - Body mass index [BMI] 30.0-30.9, adult, Z72.0 - Tobacco use Vitamin D 25-OH (D2 and D3) Today E66.09 - Other obesity due to excess calories, I10 - Essential (primary) hypertension, R73.03 - Prediabetes, Z68.30 - Body mass index [BMI] 30.0-30.9, adult, Z72.0 - Tobacco use Complete Blood Count Auto Diff Today E66.09 - Other obesity due to excess calories, I10 - Essential (primary) hypertension, R73.03 - Prediabetes, Z68.30 - Body mass index [BMI] 30.0-30.9, adult, Z72.0 - Tobacco use Lipid Panel Today E66.09 - Other obesity due to excess calories, I10 - Essential (primary) hypertension, R73.03 - Prediabetes, Z68.30 - Body mass index [BMI] 30.0-30.9, adult, Z72.0 - Tobacco use Hemoglobin A1c Today E66.09 - Other obesity due to excess calories, I10 - Essential (primary) hypertension, R73.03 - Prediabetes, Z68.30 - Body mass index [BMI] 30.0-30.9, adult, Z72.0 - Tobacco use Medications: Refilled varenicline (Chantix Continuing Month Box) 1 mg PO BID 90 days 180 tabs 0RF Coding Level of Care Code Est Pt Level 3 (97254) Diagnoses Hypertension, essential I10 Tobacco abuse Z72.0 Class 1 obesity due to excess calories with serious comorbidity and body mass index (BMI) of 30.0 to 30.9 in adult E66.09; Z68.30 Body mass index: BMI 30.0-30.9 Obesity classification: adult class 1 (BMI 30 - 34.9) Serious obesity comorbidity presence: with serious comorbidity Pre-diabetes R73.03 Additional Codes LESIA-7 Assessment Billing - LESIA-7 Assessment Tool: LESIA-7 Assessment 55294 ([id number])
== END 2024-06-01 15:03 | disposition home or self-care (01) ==
PROVIDERS: PCP Internal Medicine; Visit Provider Internal Medicine
DX: I10 Essential (primary) hypertension (principal); Z72.0 Tobacco use; E66.09 Other obesity due to excess calories; Z68.30 Body mass index [BMI] 30.0-30.9, adult; R73.03 Prediabetes
CPT/HCPCS: 99213

== ENCOUNTER 2024-07-20 13:22 | Outpatient (AMB) | payer OTHER, SELFPAY ==
--- NOTE | 2024-07-20 13:24 | MHC.PC.OV ---
Vital Signs 07/20/24 13:26 Height 5 ft 8 in Weight 199 lb 8 oz BMI 30.3 BP 112/62 Blood Pressure Location Lt brachial Position Sitting Pulse 74 Pulse Source Pulse Oximeter Pulse Oximetry (%) 97 Oxygen Delivery Method Room Air Intake Visit Reasons: strong pain with left shoulder and elbow Allergies No Known Allergies Allergy (Unknown, Verified 07/20/24 13:24) Medication List - Last Reconciled 07/20/24 by Tonya Boucher MD amlodipine 10 mg PO DAILY aspirin (Adult Low Dose Aspirin) 81 mg PO DAILY atenolol 25 mg PO DAILY 90 days lisinopril 40 mg PO DAILY varenicline (Chantix Continuing Month Box) 1 mg PO BID 90 days Tobacco use date assessed: 07/20/24 Dental Screening Dental Screen Date: 07/20/24 Did you have a dental visit in the last 12 months?: Yes Did you have a dental problem in the last 6 months where you did not have access to dental care?: No Was dental information given to patient?: Patient has dentist HPI strong pain with left shoulder and elbow HPI Details Patient is 58-year-old gentleman who went for fishing 1 month ago And afterward started having pain left shoulder, now it hurts when he raise his arm above his head On examination it seems as if patient has developed rotator cuff tendinopathy I am treating him with diclofenac 75 mg b.i.d. with food for 2 weeks He is to get back to me in 2 weeks to update me. Daily limitations and work limitations discussed with the patient [facility] Medical History Fluctuating blood pressure Pre-diabetes Surgical History Hx of colonoscopy H/O hemorrhoidectomy Family History Sister Cardiovascular disorder Father Heart attack Social History Housing: Apartment Alcohol intake: never Patient Tobacco Use Status: Current everyday Tobacco user Tobacco use type: Cigarette Cigarettes Per Day: 10 Years Smoked: 40 years Packs per year/per ci.00 e-Cigarette/Vaping Use: Never Used service: No Current occupational status: employed Cognitive needs: No Hearing needs: No Vision needs: Yes Questionnaire Thrive Questionnaire Date Thrive assessed: 06/01/24 I am a: Patient What is your living situation today?: I have a steady place to live Within the past 12 months, did the food you bought not last and you didn't have the money to get more?: Never true Within the past 12 months, did you worry whether your food would run out before you got money to buy more?: Never true Do you have trouble paying for medicines?: No Do you have trouble getting transportation to medical appointments?: No Do you have trouble paying your heating and electricity bill?: No Do you have trouble taking care of your child, family member or friend?: No Do you have trouble with day-to-day activities such as bathing, preparing meals, shopping, managing finances, etc.?: No Are you currently unemployed and looking for a job?: No Are you interested in more education?: No Please select the resources that you would like help with: None Currently or been in a relationship where the following occur: No concerns reported THRIVE Score: 0 LESIA-7 AMB Questionnaire LESIA-7 Date LESIA - 7 assessed: 06/01/24 Source: Developed by Drs. Anthony Khoury, Leanna Dominguez, Ned Lovell and colleagues, with an educational aden from [employer]. Review of Systems Const All systems reviewed & are unremarkable except as noted in HPI and below Physical exam (Primary Care) Vital Signs: Last Vital Signs Pulse 74 07/20/24 13:26 BP 112/62 07/20/24 13:26 Pulse Ox 97 07/20/24 13:26 Oxygen Delivery Method Room Air 07/20/24 13:26 BMI result Body Mass Index 30.3 Tobacco/Smoking Status: Tobacco use Status Tobacco use date assessed 07/20/24 07/20/24 13:29 Patient Tobacco Use Status Current everyday Tobacco 07/20/24 13:29 Tobacco use type Cigarette 07/20/24 13:29 e-Cigarette/Vaping Use Never Used 07/20/24 13:29 Thrive Assessment: Date of Thrive Assessment Date Thrive assessed 06/01/24 07/20/24 13:29 Currently or been in a relationship where the following occur: No concerns reported Const General: no acute distress Orientation/consciousness: patient oriented x3 Eyes General: appearance normal, both eyes and all related structures Resp Effort & Inspection: normal respiratory effort and able to speak in complete sentences Auscultation: clear to auscultation bilaterally Neuro General: patient oriented x3 Extrem Shoulder/upper arm images: 1. Site of pain with palpation and raising arm above head Psych Mental Status: mental status grossly normal Assessment and Plan Assessment & Plan (1) Tendinopathy of left rotator cuff: Code(s): M67.912 - Unspecified disorder of synovium and tendon, left shoulder Plan Patient is 58-year-old gentleman who went for fishing 1 month ago And afterward started having pain left shoulder, now it hurts when he raise his arm above his head On examination it seems as if patient has developed rotator cuff tendinopathy I am treating him with diclofenac 75 mg b.i.d. with food for 2 weeks He is to get back to me in 2 weeks to update me. Daily limitations and work limitations discussed with the patient Medications: New diclofenac sodium Take it with food 75 mg PO BID 30 tabs 0RF pain 15 days Coding Level of Care Code Est Pt Level 3 (98046) Diagnoses Tendinopathy of left rotator cuff M67.912
[2024-07-20 13:26] VITALS: BP 112/62; PULSE 74; O2SAT 97; BMI 30.3
== END 2024-07-20 13:49 | disposition home or self-care (01) ==
PROVIDERS: PCP Internal Medicine; Visit Provider Internal Medicine
DX: M67.912 Unspecified disorder of synovium and tendon, left shoulder (principal)

== ENCOUNTER → 2024-07-20 13:22 | Outpatient (BNVA) | payer OTHER, SELFPAY | PROVIDERS: PCP Internal Medicine; Visit Provider Internal Medicine | DX: M67.912 Unspecified disorder of synovium and tendon, left shoulder (principal) ==

== ENCOUNTER 2024-08-23 13:06 | Outpatient (AMB) | payer OTHER, SELFPAY ==
[2024-08-23 13:09] VITALS: BP 140/60; PULSE 73; O2SAT 97; BMI 30.3
--- NOTE | 2024-08-23 13:09 | A.OFFPC_ITS ---
Vital Signs 3 08/23/24 13:09 Height 5 ft 8 in Weight 199 lb BMI 30.3 BP 140/60 H Blood Pressure Location Rt brachial Position Sitting Pulse 73 Pulse Source Pulse Oximeter Pulse Oximetry (%) 97 Oxygen Delivery Method Room Air Intake Visit Reasons: ED/F/U/muscle strain Allergies No Known Allergies Allergy (Unknown, Verified 08/23/24 13:09) Medication List - Last Reconciled 08/23/24 by Tonya Boucher MD acetaminophen ER (Tylenol 8 Hour) 650 mg PO Q8H amlodipine 10 mg PO DAILY aspirin (Adult Low Dose Aspirin) 81 mg PO DAILY atenolol 25 mg PO DAILY 90 days ibuprofen 600 mg PO Q8H PRN lisinopril 40 mg PO DAILY varenicline (Chantix Continuing Month Box) 1 mg PO BID 90 days Tobacco use date assessed: 08/23/24 Dental Screening Dental Screen Date: 08/23/24 Did you have a dental visit in the last 12 months?: No Did you have a dental problem in the last 6 months where you did not have access to dental care?: No HPI ED/F/U/muscle strain 2 HPI0 Details Patient is 58-year-old gentleman came in today after visiting emergency room [facility] On 11th of this month Patient presented with a chief complaint of lower back pain on the left side Patient says that he lifted his leg to put a sock on and pain got worse, he was having slight pain before that as well. Patient says that the pain get worse when he leaned forward and move around He was treated with Tylenol, Motrin and lidocaine patch along with Flexeril Patient felt better and was able to stand up and move around Lidocaine patches prescription was sent and patient was discharged Patient is taking all medications however still having some discomfort On examination he is tender over left SI joint I have sent Medrol Dosepak he may continue with other medications as well He has a follow-up appointment next month [facility] Medical History Fluctuating blood pressure Pre-diabetes Surgical History Hx of colonoscopy H/O hemorrhoidectomy Family History Sister Cardiovascular disorder Father Heart attack Social History Housing: Apartment Alcohol intake: never Patient Tobacco Use Status: Current everyday Tobacco user Tobacco use type: Cigarette Cigarettes Per Day: 10 Years Smoked: 40 years e-Cigarette/Vaping Use: Never Used service: No Current occupational status: employed Cognitive needs: No Hearing needs: No Vision needs: Yes Questionnaire Thrive Questionnaire Date Thrive assessed: 06/01/24 I am a: Patient What is your living situation today?: I have a steady place to live Within the past 12 months, did the food you bought not last and you didn't have the money to get more?: Never true Within the past 12 months, did you worry whether your food would run out before you got money to buy more?: Never true Do you have trouble paying for medicines?: No Do you have trouble getting transportation to medical appointments?: No Do you have trouble paying your heating and electricity bill?: No Do you have trouble taking care of your child, family member or friend?: No Do you have trouble with day-to-day activities such as bathing, preparing meals, shopping, managing finances, etc.?: No Are you currently unemployed and looking for a job?: No Are you interested in more education?: No Please select the resources that you would like help with: None Currently or been in a relationship where the following occur: No concerns reported THRIVE Score: 0 LESIA-7 AMB Questionnaire LESIA-7 Date LESIA - 7 assessed: 06/01/24 Source: Developed by Drs. Anthony Khoury, Leanna Dominguez, Ned Lovell and colleagues, with an educational aden from [employer]. Review of Systems Const Denies chills and Denies fever(s) ENT Denies epistaxis and Denies nasal discharge Card Denies chest pain Resp Denies chest congestion, Denies cough and Denies hemoptysis GI Denies diarrhea and Denies nausea Skin/Breast Denies rash Neuro Reports no additional complaints Psych Reports no additional complaints Endo Reports no additional complaints Physical exam (Primary Care) Vital Signs: Last Vital Signs Pulse 73 08/23/24 13:09 BP 140/60 H 08/23/24 13:09 Pulse Ox 97 08/23/24 13:09 Oxygen Delivery Method Room Air 08/23/24 13:09 BMI result Body Mass Index 30.3 Tobacco/Smoking Status: Tobacco use Status Tobacco use date assessed 08/23/24 08/23/24 13:14 Patient Tobacco Use Status Current everyday Tobacco 08/23/24 13:14 Tobacco use type Cigarette 08/23/24 13:14 e-Cigarette/Vaping Use Never Used 08/23/24 13:14 Thrive Assessment: Date of Thrive Assessment Date Thrive assessed 06/01/24 08/23/24 13:14 Currently or been in a relationship where the following occur: No concerns reported Const General: cooperative, comfortable and no acute distress Orientation/consciousness: patient oriented x3 HENMT Head: Yes normocephalic Eyes General: appearance normal, both eyes and all related structures Neck Neck: Yes supple Resp Effort & Inspection: normal respiratory effort, no cough and no stridor Cardio Rhythm: regular rhythm Heart sounds: S1 normal heart sound present and S2 normal heart sound present Back/Spine/Pelvis Back/spine/pelvis image: 2 1. Pain with pressure Skin General skin exam: turgor normal Neuro General: patient oriented x3, tone normal and moves all extremities Extrem Right lower extremity: no edema Left lower extremity: no edema Coding Level of Care Code Est Pt Level 3 (32580) Diagnoses Sacroiliitis M46.1 Acute left-sided low back pain without sciatica M54.50 Chronicity: acute Back pain laterality: left Sciatica presence: without sciatica Assessment & Plan Assessment & Plan (1) Sacroiliitis: Code(s): M46.1 - Sacroiliitis, not elsewhere classified Category: Medical (2) Lower back pain: Code(s): M54.50 - Low back pain, unspecified Category: Medical Qualifiers: Chronicity: acute Back pain laterality: left Sciatica presence: w ithout sciatica Qualified Code(s): M54.50 - Low back pain, unspecified Plan Patient is 58-year-old gentleman came in today after visiting emergency room [facility] On 11th of this month Patient presented with a chief complaint of lower back pain on the left side Patient says that he lifted his leg to put a sock on and pain got worse, he was having slight pain before that as well. Patient says that the pain get worse when he leaned forward and move around He was treated with Tylenol, Motrin and lidocaine patch along with Flexeril Patient felt better and was able to stand up and move around Lidocaine patches prescription was sent and patient was discharged Patient is taking all medications however still having some discomfort On examination he is tender over left SI joint I have sent Medrol Dosepak he may continue with other medications as well He has a follow-up appointment next month Medications: New 2 methylprednisolone (Medrol (Antoni)) PO PER PKG DIR 6 days 21 ea 0RF lidocaine 5% (Lidoderm) leave on most painful area for up to 12 hrs 1 patch topical DAILY 30 ea 0RF Lower back pain
== END 2024-08-23 14:22 | disposition home or self-care (01) ==
PROVIDERS: PCP Internal Medicine; Visit Provider Internal Medicine
DX: M46.1 Sacroiliitis, not elsewhere classified (principal); M54.50 Low back pain, unspecified

== ENCOUNTER → 2024-08-23 13:06 | Outpatient (BNVA) | payer OTHER, SELFPAY | PROVIDERS: PCP Internal Medicine; Visit Provider Internal Medicine ==

== ENCOUNTER 2024-08-27 07:24 | Outpatient (REF) | payer OTHER, SELFPAY ==
[2024-08-27 11:17] LABS: MANUAL DIFF FLAG NO
[2024-08-27 11:41] LABS: Estimated Average Glucose 108 mg/dL; Hemoglobin A1c % 5.4 % (<6.0); Total Hemoglobin (HGBA1C) 3986.9395 umol/L
[2024-08-27 11:44] LABS: Basophils Absolute Auto 0.1 X10*3/uL (0.0-0.2); Basophils Percent Auto 0.9 % (0-2); Eosinophils Absolute Auto 0.3 X10*3/uL (0.0-0.4); Eosinophils Percent Auto 4.1 % (0-4); Hematocrit 48.1 % (42.0-52.0); Hemoglobin 16.7 g/dl (14.0-18.0); Imm Gran Abs Auto 0.04 X10*3/uL (0.00-0.03); Imm Gran Pct Auto 0.6 % (0.0-0.4); Lymphocytes Absolute Auto 2.1 X10*3/uL (1.2-4.9); Lymphocytes Percent Auto 30.4 % (20-40); Mean Corpuscular HGB Conc 34.7 g/dl (31.0-36.0); Mean Corpuscular Hemoglobin 34.6 pg (27.0-33.0); Mean Corpuscular Volume 99.8 fL (80.0-98.0); Mean Platelet Volume 10.2 fL (9.4-12.4); Monocytes Absolute Auto 0.6 X10*3/uL (0.1-1.2); Monocytes Percent Auto 8.9 % (2-11); Neutrophils Absolute Auto 3.8 x10*3/uL (2.0-8.3); Neutrophils Percent Auto 55.1 % (45-73); Platelet Count 320 X10*3/uL (160-400); Red Blood Count 4.82 X10*6/uL (4.60-5.80); Red Cell Distribution Width 11.9 % (11.0-16.0); White Blood Count 6.9 X10*3/uL (4.8-10.8)
[2024-08-27 11:59] LABS: Alanine Aminotransferase 38 U/L (0-40); Albumin Level 4.3 g/dL (3.5-5.0); Alkaline Phosphatase 72 U/L (39-117); Anion Gap 14 (12-20); Aspartate Amino Transferase 31 U/L (5-37); Bilirubin Total 0.8 mg/dL (0.0-1.0); Blood Urea Nitrogen 10 mg/dL (9-16); Calcium 10.1 mg/dL (8.4-10.2); Carbon Dioxide 28 mmol/L (22-29); Chloride 106 mmol/L (96-108); Cholesterol 183 mg/dL (<200); Estimated Glomerular Filt Rate > 60; Glucose Fasting 106 mg/dL (60-99); HDL Cholesterol 33 mg/dL (>40); LDL Cholesterol Calculated 74 mg/dL (<100); Potassium 4.8 mmol/L (3.3-5.1); Sodium 143 mmol/L (135-145); Total Protein 7.2 g/dL (6.5-8.0); Triglycerides 383 mg/dL (<150)
[2024-09-01 16:09] LABS: Vitamin D 25-OH, D2 <4 ng/mL; Vitamin D 25-OH, D3 19 ng/mL; Vitamin D 25-OH, Total 19 ng/mL (30-100)
== END 2024-08-27 07:25 | disposition home or self-care (01) ==
LOC: HO.HMGCLDS 07:24
PROVIDERS: PCP Internal Medicine; Visit Provider Internal Medicine
DX: I10 Essential (primary) hypertension (principal); Z72.0 Tobacco use; E66.09 Other obesity due to excess calories; Z68.30 Body mass index [BMI] 30.0-30.9, adult; R73.03 Prediabetes
CPT/HCPCS: 36415; 80053; 80061; 82306; 83036; 85025

== ENCOUNTER 2024-09-14 14:58 | Outpatient (AMB) | payer OTHER, SELFPAY ==
--- NOTE | 2024-09-14 15:00 | A.OFFPC_ITS ---
Vital Signs 09/14/24 15:01 Height 5 ft 8 in Weight 203 lb BMI 30.9 BP 150/62 H Blood Pressure Location Lt brachial Position Sitting Pulse 67 Pulse Source Pulse Oximeter Pulse Oximetry (%) 99 Oxygen Delivery Method Room Air Intake Visit Reasons: 4 month f/u Allergies morphine Adverse Reaction (Verified 09/14/24 15:04) Nausea Medication List - Last Reconciled 09/14/24 by Tonya Boucher MD acetaminophen ER (Tylenol 8 Hour) 650 mg PO Q8H amlodipine 10 mg PO DAILY aspirin (Adult Low Dose Aspirin) 81 mg PO DAILY atenolol 25 mg PO DAILY 90 days ibuprofen 600 mg PO Q8H PRN lidocaine 5% (Lidoderm) 1 patch topical DAILY lisinopril 40 mg PO DAILY varenicline (Chantix Continuing Month Box) 1 mg PO BID 90 days Tobacco use date assessed: 09/14/24 Dental Screening Dental Screen Date: 09/14/24 Did you have a dental visit in the last 12 months?: No Did you have a dental problem in the last 6 months where you did not have access to dental care?: No Was dental information given to patient?: Patient declined HPI 4 month f/u HPI Details Patient is 58-year-old gentleman came in today his regular follow-up appointment Labs done in August reviewed again fasting sugar is 106 patient is prediabetic His triglycerides has gone up to 383 we will continue to monitor that Patient have repeat labs in 3 months Vitamin-D level is low, supplement sent Patient has not seen eye doctor in a while, but he says that he will see 1 from his work Blood pressure is elevated patient is taking all his medication regularly He is also on ibuprofen every now and then for aches and pains He took 1 last night I have told him to keep a log of his blood pressure along with time And bring it along next visit If blood pressure is above 150 at home he may take extra atenolol 25 mg Patient has stopped smoking with the help of Chantix he is to continue that for another three-month He is having anxiety since he stopped smoking I have sent buspirone 5 mg he may take 1 q.12 as needed BMI is elevated patient need to lose weight PFSH Medical History Fluctuating blood pressure Pre-diabetes Surgical History Hx of colonoscopy H/O hemorrhoidectomy Family History Sister Cardiovascular disorder Father Heart attack Social History Housing: Apartment Alcohol intake: never Patient Tobacco Use Status: Former Tobacco user Tobacco use type: Cigarette Cigarettes Per Day: 10 Years Smoked: 40 years e-Cigarette/Vaping Use: Never Used service: No Current occupational status: employed Cognitive needs: No Hearing needs: No Vision needs: Yes Questionnaire Thrive Questionnaire Date Thrive assessed: 06/01/24 I am a: Patient What is your living situation today?: I have a steady place to live Within the past 12 months, did the food you bought not last and you didn't have the money to get more?: Never true Within the past 12 months, did you worry whether your food would run out before you got money to buy more?: Never true Do you have trouble paying for medicines?: No Do you have trouble getting transportation to medical appointments?: No Do you have trouble paying your heating and electricity bill?: No Do you have trouble taking care of your child, family member or friend?: No Do you have trouble with day-to-day activities such as bathing, preparing meals, shopping, managing finances, etc.?: No Are you currently unemployed and looking for a job?: No Are you interested in more education?: No Please select the resources that you would like help with: None Currently or been in a relationship where the following occur: No concerns reported THRIVE Score: 0 LESIA-7 AMB Questionnaire LESIA-7 Date LESIA - 7 assessed: 06/01/24 Source: Developed by Drs. Anthony Khoury, Leanna Dominguez, Ned Lovell and colleagues, with an educational aden from [employer]. Review of Systems Const Denies chills and Denies fever(s) ENT Denies epistaxis and Denies nasal discharge Card Denies chest pain Resp Denies chest congestion, Denies cough and Denies hemoptysis GI Denies diarrhea and Denies nausea Skin/Breast Denies rash Neuro Reports no additional complaints Psych Reports no additional complaints Endo Reports no additional complaints Physical exam (Primary Care) Vital Signs: Last Vital Signs Pulse 67 09/14/24 15:01 BP 150/62 H 09/14/24 15:01 Pulse Ox 99 09/14/24 15:01 Oxygen Delivery Method Room Air 09/14/24 15:01 BMI result Body Mass Index 30.9 Tobacco/Smoking Status: Tobacco use Status Tobacco use date assessed 09/14/24 09/14/24 15:05 Patient Tobacco Use Status Former Tobacco user 09/14/24 15:05 Tobacco use type Cigarette 09/14/24 15:05 e-Cigarette/Vaping Use Never Used 09/14/24 15:05 Thrive Assessment: Date of Thrive Assessment Date Thrive assessed 06/01/24 09/14/24 15:05 Currently or been in a relationship where the following occur: No concerns reported Const General: cooperative, comfortable and no acute distress Orientation/consciousness: patient oriented x3 HENMT Head: Yes normocephalic Eyes General: appearance normal, both eyes and all related structures Neck Neck: Yes supple Resp Effort & Inspection: normal respiratory effort, no cough and no stridor Cardio Rhythm: regular rhythm Heart sounds: S1 normal heart sound present and S2 normal heart sound present Skin General skin exam: turgor normal Neuro General: patient oriented x3, tone normal and moves all extremities Extrem Right lower extremity: no edema Left lower extremity: no edema Coding Level of Care Code Tele Est Pt Level 4 (01002) Diagnoses Hypertension, essential I10 Class 1 obesity due to excess calories with serious comorbidity and body mass index (BMI) of 30.0 to 30.9 in adult E66.09; Z68.30 Obesity classification: adult class 1 (BMI 30 - 34.9) Serious obesity comorbidity presence: with serious comorbidity Body mass index: BMI 30.0-30.9 Non-rheumatic aortic stenosis I35.0 Pre-diabetes R73.03 High blood triglycerides E78.1 Anxiety, generalized F41.1 Assessment & Plan Assessment & Plan (1) Hypertension, essential: Code(s): I10 - Essential (primary) hypertension Category: Medical (2) Obesity due to excess calories: Code(s): E66.09 - Other obesity due to excess calories Category: Medical Qualifiers: Obesity classification: adult class 1 (BMI 30 - 34.9) Serious obesity comorbidity presence: with serious comorbidity Body mass index: BMI 30.0-30.9 Qualified Code(s): E66.09 - Other obesity due to excess calories; Z68.30 - Body mass index [BMI] 30.0-30.9, adult (3) Non-rheumatic aortic stenosis: Code(s): I35.0 - Nonrheumatic aortic (valve) stenosis Category: Medical (4) Pre-diabetes: Code(s): R73.03 - Prediabetes Category: Medical (5) High blood triglycerides: Code(s): E78.1 - Pure hyperglyceridemia Category: Medical (6) Anxiety, generalized: Code(s): F41.1 - Generalized anxiety disorder Category: Medical Plan Patient is 58-year-old gentleman came in today his regular follow-up appointment Labs done in August reviewed again fasting sugar is 106 patient is prediabetic His triglycerides has gone up to 383 we will continue to monitor that Patient have repeat labs in 3 months Vitamin-D level is low, supplement sent Patient has not seen eye doctor in a while, but he says that he will see 1 from his work Blood pressure is elevated patient is taking all his medication regularly He is also on ibuprofen every now and then for aches and pains He took 1 last night I have told him to keep a log of his blood pressure along with time And bring it along next visit If blood pressure is above 150 at home he may take extra atenolol 25 mg Patient has stopped smoking with the help of Chantix he is to continue that for another three-month He is having anxiety since he stopped smoking I have sent buspirone 5 mg he may take 1 q.12 as needed BMI is elevated patient need to lose weight Orders: Orders Hemoglobin A1c 3 Months E66.09 - Other obesity due to excess calories, E78.1 - Pure hyperglyceridemia, F41.1 - Generalized anxiety disorder, I10 - Essential (primary) hypertension, I35.0 - Nonrheumatic aortic (valve) stenosis, R73.03 - Prediabetes, Z68.30 - Body mass index [BMI] 30.0-30.9, adult Complete Blood Count Auto Diff 3 Months E66.09 - Other obesity due to excess calories, E78.1 - Pure hyperglyceridemia, F41.1 - Generalized anxiety disorder, I10 - Essential (primary) hypertension, I35.0 - Nonrheumatic aortic (valve) stenosis, R73.03 - Prediabetes, Z68.30 - Body mass index [BMI] 30.0-30.9, adult Comprehensive Lyle. Panel Fast 3 Months E66.09 - Other obesity due to excess calories, E78.1 - Pure hyperglyceridemia, F41.1 - Generalized anxiety disorder, I10 - Essential (primary) hypertension, I35.0 - Nonrheumatic aortic (valve) stenosis, R73.03 - Prediabetes, Z68.30 - Body mass index [BMI] 30.0-30.9, adult Lipid Panel 3 Months E66.09 - Other obesity due to excess calories, E78.1 - Pure hyperglyceridemia, F41.1 - Generalized anxiety disorder, I10 - Essential (primary) hypertension, I35.0 - Nonrheumatic aortic (valve) stenosis, R73.03 - Prediabetes, Z68.30 - Body mass index [BMI] 30.0-30.9, adult Medications: New buspirone 5 mg PO BID 30 tabs 0RF cholecalciferol (vitamin D3) 25 mcg PO DAILY 90 days 90 caps 1RF Refilled varenicline (Chantix Continuing Month Box) 1 mg PO BID 90 days 180 tabs 0RF
[2024-09-14 15:01] VITALS: BP 150/62; PULSE 67; O2SAT 99; BMI 30.9
== END 2024-09-14 15:49 | disposition home or self-care (01) ==
PROVIDERS: PCP Internal Medicine; Visit Provider Internal Medicine
DX: I10 Essential (primary) hypertension (principal); E66.09 Other obesity due to excess calories; Z68.30 Body mass index [BMI] 30.0-30.9, adult; I35.0 Nonrheumatic aortic (valve) stenosis; R73.03 Prediabetes; E78.1 Pure hyperglyceridemia; F41.1 Generalized anxiety disorder

== ENCOUNTER 2024-12-02 08:50 | Outpatient (REF) | payer OTHER, SELFPAY ==
[2024-12-02 10:55] LABS: MANUAL DIFF FLAG NO
[2024-12-02 11:03] LABS: Basophils Absolute Auto 0.1 X10*3/uL (0.0-0.2); Basophils Percent Auto 0.9 % (0-2); Eosinophils Absolute Auto 0.4 X10*3/uL (0.0-0.4); Eosinophils Percent Auto 4.8 % (0-4); Hematocrit 46.7 % (42.0-52.0); Imm Gran Abs Auto 0.05 X10*3/uL (0.00-0.03); Imm Gran Pct Auto 0.6 % (0.0-0.4); Lymphocytes Absolute Auto 2.2 X10*3/uL (1.2-4.9); Mean Corpuscular HGB Conc 34.3 g/dl (31.0-36.0); Mean Corpuscular Hemoglobin 33.6 pg (27.0-33.0); Mean Corpuscular Volume 98.1 fL (80.0-98.0); Mean Platelet Volume 10.3 fL (9.4-12.4); Monocytes Absolute Auto 0.7 X10*3/uL (0.1-1.2); Monocytes Percent Auto 8.7 % (2-11); Neutrophils Absolute Auto 4.4 x10*3/uL (2.0-8.3); Platelet Count 299 X10*3/uL (160-400); Red Blood Count 4.76 X10*6/uL (4.60-5.80); White Blood Count 7.7 X10*3/uL (4.8-10.8)
[2024-12-02 11:26] LABS: Estimated Average Glucose 105 mg/dL; Hemoglobin A1C 140.4382 umol/L; Hemoglobin A1c % 5.3 % (<6.0); Total Hemoglobin (HGBA1C) 4109.5154 umol/L
[2024-12-02 11:28] LABS: Alanine Aminotransferase 34 U/L (0-40); Albumin Level 4.1 g/dL (3.5-5.0); Alkaline Phosphatase 86 U/L (39-117); Anion Gap 10 (12-20); Aspartate Amino Transferase 31 U/L (5-37); Bilirubin Total 0.7 mg/dL (0.0-1.0); Blood Urea Nitrogen 13 mg/dL (9-16); Calcium 9.6 mg/dL (8.4-10.2); Carbon Dioxide 27 mmol/L (22-29); Chloride 109 mmol/L (96-108); Cholesterol 174 mg/dL (<200); Estimated Glomerular Filt Rate > 60; Glucose Fasting 112 mg/dL (60-99); HDL Cholesterol 42 mg/dL (>40); LDL Cholesterol Calculated 102 mg/dL (<100); Sodium 141 mmol/L (135-145); Total Protein 7.1 g/dL (6.5-8.0); Triglycerides 151 mg/dL (<150)
== END 2024-12-02 08:51 | disposition home or self-care (01) ==
LOC: HO.HMGCLDS 08:50
PROVIDERS: PCP Internal Medicine; Visit Provider Internal Medicine
DX: E78.1 Pure hyperglyceridemia (principal); R73.03 Prediabetes; I35.0 Nonrheumatic aortic (valve) stenosis; E66.09 Other obesity due to excess calories; Z68.30 Body mass index [BMI] 30.0-30.9, adult; I10 Essential (primary) hypertension; F41.1 Generalized anxiety disorder
CPT/HCPCS: 36415; 80053; 80061; 83036; 85025

== ENCOUNTER 2024-12-16 14:23 | Outpatient (AMB) | payer OTHER, SELFPAY ==
[2024-12-16 14:28] VITALS: BP 122/62; PULSE 69; RESP 16; TEMP 36.6; O2SAT 96; BMI 30.7
--- NOTE | 2024-12-16 14:28 | A.OFFPC_ITS ---
Vital Signs 12/16/24 14:28 Height 5 ft 8 in Weight 202 lb 1 oz BMI 30.7 BP 122/62 Blood Pressure Location Lt brachial Position Sitting Respiration 16 Pulse 69 Pulse Source Pulse Oximeter Temp 97.9 F Temp Source Oral Pulse Oximetry (%) 96 Oxygen Delivery Method Room Air Intake Visit Reasons: Annual PE Allergies morphine Adverse Reaction (Verified 09/14/24 15:04) Nausea Medication List - Last Reconciled 12/16/24 by Tonya Boucher MD acetaminophen ER (Tylenol 8 Hour) 650 mg PO Q8H amlodipine 10 mg PO DAILY aspirin (Adult Low Dose Aspirin) 81 mg PO DAILY atenolol 25 mg PO DAILY 90 days buspirone 5 mg PO BID 90 days cholecalciferol (vitamin D3) 25 mcg PO DAILY 90 days ibuprofen 600 mg PO Q8H PRN lidocaine 5% (Lidoderm) 1 patch topical DAILY lisinopril 40 mg PO DAILY varenicline tartrate (Chantix Continuing Month Box) 1 mg PO BID 90 days Tobacco use date assessed: 09/14/24 Dental Screening Dental Screen Date: 09/14/24 HPI Annual PE HPI Details Physical exam appointment Blood pressure is well-controlled today Taking all his medications no side effects Colonoscopy [place] [address] Serrano BMI is elevated patient is trying to lose weight Anxiety stable Medication list reviewed Patient is on Chantix Labs done recently reviewed Fasting sugar is 112 1st week of April PFSH Medical History Fluctuating blood pressure Pre-diabetes Surgical History Hx of colonoscopy H/O hemorrhoidectomy Family History Sister Cardiovascular disorder Father Heart attack Social History Housing: Apartment Alcohol intake: never Patient Tobacco Use Status: Former Tobacco user Tobacco use type: Cigarette Cigarettes Per Day: 10 Years Smoked: 40 years e-Cigarette/Vaping Use: Never Used service: No Current occupational status: employed Cognitive needs: No Hearing needs: No Vision needs: Yes Questionnaire PHQ-9 Over the last 2 weeks, how often have you been bothered by any of the following problems? 1. Little interest or pleasure in doing things: not at all 2. Feeling down, depressed, or hopeless: not at all 3. Trouble falling or staying asleep, or sleeping too much: not at all 4. Feeling tired or having little energy: not at all 5. Poor appetite or overeating: not at all 6. Feeling bad about yourself - or that you are a failure or have let yourself or your family down: not at all 7. Trouble concentrating on things, such as reading the newspaper or watching television: not at all 8. Moving or speaking so slowly that other people could have noticed. Or the opposite - being so fidgety or restless that you have been moving around a lot more than usual: not at all 9. Thoughts that you would be better off or of hurting yourself in some way: not at all Total score: 0 Depression Screening Interpretation: Negative Depression Screening Done: Yes 95291 - PHQ-9 Billing: Yes Source: Developed by Drs. Anthony Khoury, Leanna Dominguez, Ned Lovell and colleagues, with an educational aden from [employer]. Thrive Questionnaire Date Thrive assessed: 06/01/24 I am a: Patient What is your living situation today?: I have a steady place to live Within the past 12 months, did the food you bought not last and you didn't have the money to get more?: Never true Within the past 12 months, did you worry whether your food would run out before you got money to buy more?: Never true Do you have trouble paying for medicines?: No Do you have trouble getting transportation to medical appointments?: No Do you have trouble paying your heating and electricity bill?: No Do you have trouble taking care of your child, family member or friend?: No Do you have trouble with day-to-day activities such as bathing, preparing meals, shopping, managing finances, etc.?: No Are you currently unemployed and looking for a job?: No Are you interested in more education?: No Please select the resources that you would like help with: None Currently or been in a relationship where the following occur: No concerns reported THRIVE Score: 0 AUDIT C Alcohol Use Questionnaire (AUDIT-C) 1. How often do you have a drink containing alcohol?: 2-3 times a week 2. How many drinks containing alcohol do you have on a typical day when you are drinking?: 1 or 2 3. How often do you have six or more drinks on one occasion?: Never Total Score: 3 LESIA-7 AMB Questionnaire LESIA-7 Date LESIA - 7 assessed: 06/01/24 Feeling nervous, anxious, or on edge: 0 = Not at all Not being able to stop or control worryin = Not at all Worrying too much about different things: 0 = Not at all Trouble relaxin = Not at all Being so restless that it is hard to sit still: 0 = Not at all Becoming easily annoyed or irritable: 0 = Not at all Feeling afraid as if something awful might happen: 0 = Not at all Total LESIA-7 score (0-4 normal; 5-9 mild; 10-14 moderate; 15-21 severe): 0 Source: Developed by Drs. Anthony Khoury, Leanna Dominguez, Ned Lovell and colleagues, with an educational aden from [employer]. Physical exam (Primary Care) Vital Signs: Last Vital Signs Temp 97.9 F 12/16/24 14:28 Pulse 69 12/16/24 14:28 Resp 16 12/16/24 14:28 BP 122/62 12/16/24 14:28 Pulse Ox 96 12/16/24 14:28 Oxygen Delivery Method Room Air 12/16/24 14:28 BMI result Body Mass Index 30.7 Tobacco/Smoking Status: Tobacco use Status Tobacco use date assessed 09/14/24 12/16/24 14:29 Patient Tobacco Use Status Former Tobacco user 12/16/24 14:29 Tobacco use type Cigarette 12/16/24 14:29 e-Cigarette/Vaping Use Never Used 12/16/24 14:29 PHQ-9: PHQ-9 Score PHQ-9: Total score 0 12/16/24 14:29 Depression Screening Interpretation: Negative Thrive Assessment: Date of Thrive Assessment Date Thrive assessed 06/01/24 12/16/24 14:29 Currently or been in a relationship where the following occur: No concerns reported Coding Level of Care Code Est Pt Prev Care 40-64y(91340) Diagnoses Annual physical exam Z00.00 Additional Codes PHQ-9 - 74015 - PHQ-9 Billing: Yes ([id number]) Assessment & Plan Assessment & Plan (1) Annual physical exam: Code(s): Z00.00 - Encounter for general adult medical examination without abnormal findings Category: Medical Plan Physical exam appointment Blood pressure is well-controlled today Taking all his medications no side effects Colonoscopy [place] be in [address] Serrano BMI is elevated patient is trying to lose weight Anxiety stable Medication list reviewed Patient is on Chantix Labs done recently reviewed Fasting sugar is 112 week april
== END 2024-12-16 14:47 | disposition home or self-care (01) ==
PROVIDERS: PCP Internal Medicine; Visit Provider Internal Medicine
DX: Z00.00 Encounter for general adult medical examination without abnormal findings (principal)

== ENCOUNTER → 2024-12-16 14:23 | Outpatient (BNVA) | payer OTHER, SELFPAY | PROVIDERS: PCP Internal Medicine; Visit Provider Internal Medicine | DX: Z00.00 Encounter for general adult medical examination without abnormal findings (principal) | CPT/HCPCS: 96127 ==

== ENCOUNTER 2025-04-18 15:01 | Outpatient (AMB) | payer OTHER, SELFPAY ==
[2025-04-18 15:02] VITALS: BP 138/58; PULSE 67; TEMP 36.6; O2SAT 98; BMI 30.7
--- NOTE | 2025-04-18 15:02 | A.OFFPC_ITS ---
Vital Signs 04/18/25 15:02 Height 5 ft 8 in Weight 202 lb BMI 30.7 BP 138/58 L Blood Pressure Location Rt brachial Position Sitting Pulse 67 Pulse Source Pulse Oximeter Temp 98 F Temp Source Oral Pulse Oximetry (%) 98 Oxygen Delivery Method Room Air Intake Visit Reasons: 4 months f/up Allergies morphine Adverse Reaction (Verified 04/18/25 15:02) Nausea Medication List - Last Reconciled 04/18/25 by Tonya Boucher MD acetaminophen ER (Tylenol 8 Hour) 650 mg PO Q8H amlodipine 10 mg PO DAILY aspirin (Adult Low Dose Aspirin) 81 mg PO DAILY atenolol 25 mg PO DAILY 90 days cholecalciferol (vitamin D3) 25 mcg PO DAILY 90 days lisinopril 40 mg PO DAILY Tobacco use date assessed: 04/18/25 Dental Screening Dental Screen Date: 04/18/25 Did you have a dental visit in the last 12 months?: No Did you have a dental problem in the last 6 months where you did not have access to dental care?: No Was dental information given to patient?: No HPI 4 months f/up HPI Details History - The patient is a 59-year-old male pres enting for a routine follow-up visit. - Hypertension has been noted, with rece nt fluctuations in blood pressure reported but not consistently monitored at home. No recent significant side effects from medications were reported. - Auditory concerns were discussed; the patient noted worsening hearing over the past two years with particular difficulty in noisy environments. A previous hearing test was conducted two years ago, yet recent challenges necessitate further evaluation. The patient plans to arrange a new appointment for a hearing assessment. Medical History: - Hypertension, managed with multiple an tihypertensive medications. - History of hearing impairment with pre vious assessments conducted two years ago. Medications: - Amlodipine 10 mg for hypertension. - Atenolol 25 mg for hypertension. - Lisinopril 40 mg for hypertension. - Aspirin (dose unspecified) as part of cardiovascular risk management. - Vitamin D supplement (dose unspecified ). Social History: - The patient has ceased smoking with oc casional lapses, the most recent being approximately one and a half weeks ago. - Regular social interaction with family , typically with brothers monthly in settings such as restaurants, though auditory issues in such environments are noted. Diagnostic Results: - Labs: Blood test was due as the last t est was completed in November; repeat testing was discussed. - Tests and Diagnostics: Previous hearin g test conducted two years ago, new appointment for hearing assessment pending. Problem List - Essential Hypertension - Hearing Impairment - obesity with BMI of 30.7 Patient Instructions - Monitor blood pressure more consistent ly at home. - Schedule a hearing test appointment. - Book the next routine appointment for four months from now. - Get a non-fasting blood test for kidne y function and glucose monitoring. Review of Systems - General: No fever no chills - Neurological: No headaches no dizziness - Ear nose throat: No sore throat no hearing difficulty no ear pain - Cardiovascular: No syncope, no chest pain, no palpitations - Gastrointestinal: No nausea vomiting or diarrhea - Endocrine: No polyuria polydipsia no heat intolerance - Genitourinary: No dysuria , no blood in urine Physical Exam General: No acute distress HEENT: Ears are clean, no wax Neck: Supple Respiratory system: Able to talk in full sentences, no audible wheeze Cardiovascular: S1-S2 regular in rate and rhythm Gastrointestinal: No pain Extremities: No new findings PRODUCTION COORDINATOR: Alert awake oriented x3 motor sensory intact Skin: Normal turgor PFSH Medical History Fluctuating blood pressure Pre-diabetes Surgical History Hx of colonoscopy H/O hemorrhoidectomy Family History Sister Cardiovascular disorder Father Heart attack Social History Housing: Apartment Alcohol intake: never Patient Tobacco Use Status: Former Tobacco user Tobacco use type: Cigarette Cigarettes Per Day: 10 Years Smoked: 40 years e-Cigarette/Vaping Use: Never Used service: No Current occupational status: employed Cognitive needs: No Hearing needs: No Vision needs: Yes Questionnaire Thrive Questionnaire Date Thrive assessed: 12/16/24 I am a: Patient What is your living situation today?: I have a steady place to live Within the past 12 months, did the food you bought not last and you didn't have the money to get more?: Never true Within the past 12 months, did you worry whether your food would run out before you got money to buy more?: Never true Do you have trouble paying for medicines?: No Do you have trouble getting transportation to medical appointments?: No Do you have trouble paying your heating and electricity bill?: No Do you have trouble taking care of your child, family member or friend?: No Do you have trouble with day-to-day activities such as bathing, preparing meals, shopping, managing finances, etc.?: No Are you currently unemployed and looking for a job?: No Are you interested in more education?: No Please select the resources that you would like help with: None Currently or been in a relationship where the following occur: No concerns reported THRIVE Score: 0 LESIA-7 AMB Questionnaire LESIA-7 Date LESIA - 7 assessed: 06/01/24 Source: Developed by Drs. Anthony Khoury, Leanna Dominguez, Ned Lovell and colleagues, with an educational aden from [employer]. Physical exam (Primary Care) Vital Signs: Last Vital Signs Temp 98 F 04/18/25 15:02 Pulse 67 04/18/25 15:02 BP 138/58 L 04/18/25 15:02 Pulse Ox 98 04/18/25 15:02 Oxygen Delivery Method Room Air 04/18/25 15:02 BMI result Body Mass Index 30.7 Tobacco/Smoking Status: Tobacco use Status Tobacco use date assessed 04/18/25 04/18/25 15:07 Patient Tobacco Use Status Former Tobacco user 04/18/25 15:07 Tobacco use type Cigarette 04/18/25 15:07 e-Cigarette/Vaping Use Never Used 04/18/25 15:07 Thrive Assessment: Date of Thrive Assessment Date Thrive assessed 12/16/24 04/18/25 15:07 Currently or been in a relationship where the following occur: No concerns reported Coding Level of Care Code Est Pt Level 3 (09464) Diagnoses Hypertension, essential I10 Pre-diabetes R73.03 Class 1 obesity due to excess calories with serious comorbidity and body mass index (BMI) of 30.0 to 30.9 in adult E66.09; Z68.30 Body mass index: BMI 30.0-30.9 Obesity classification: adult class 1 (BMI 30 - 34.9) Serious obesity comorbidity presence: with serious comorbidity Tobacco abuse Z72.0 Non-rheumatic aortic stenosis I35.0 Assessment & Plan Assessment & Plan (1) Hypertension, essential: Code(s): I10 - Essential (primary) hypertension Category: Medical (2) Pre-diabetes: Code(s): R73.03 - Prediabetes Category: Medical (3) Obesity due to excess calories: Code(s): E66.09 - Other obesity due to excess calories Category: Medical Qualifiers: Body mass index: BMI 30.0-30.9 Obesity classification: adult class 1 (BMI 30 - 34.9) Serious obesity comorbidity presence: with serious comorbidity Qualified Code(s): E66.09 - Other obesity due to excess calories; Z68.30 - Body mass index [BMI] 30.0-30.9, adult (4) Tobacco abuse: Code(s): Z72.0 - Tobacco use Category: Medical (5) Non-rheumatic aortic stenosis: Code(s): I35.0 - Nonrheumatic aortic (valve) stenosis Category: Medical Plan History - The patient is a 59-year-old male presenting for a routine follow-up visit. - Hypertension has been noted, with recent fluctuations in blood pressure reported but not consistently monitored at home. No recent significant side effects from medications were reported. - Auditory concerns were discussed; the patient noted worsening hearing over the past two years with particular difficulty in noisy environments. A previous hearing test was conducted two years ago, yet recent challenges necessitate further evaluation. The patient plans to arrange a new appointment for a hearing assessment. Medical History: - Hypertension, managed with multiple antihypertensive medications. - History of hearing impairment with previous assessments conducted two years ago. Medications: - Amlodipine 10 mg for hypertension. - Atenolol 25 mg for hypertension. - Lisinopril 40 mg for hypertension. - Aspirin (dose unspecified) as part of cardiovascular risk management. - Vitamin D supplement (dose unspecified). Social History: - The patient has ceased smoking with occasional lapses, the most recent being approximately one and a half weeks ago. - Regular social interaction with family, typically with brothers monthly in settings such as restaurants, though auditory issues in such environments are noted. Diagnostic Results: - Labs: Blood test was due as the last test was completed in November; repeat testing was discussed. - Tests and Diagnostics: Previous hearing test conducted two years ago, new appointment for hearing assessment pending. Problem List - Essential Hypertension - Hearing Impairment - obesity with BMI of 30.7 Patient Instructions - Monitor blood pressure more consistently at home. - Schedule a hearing test appointment. - Book the next routine appointment for four months from now. - Get a non-fasting blood test for kidney function and glucose monitoring. Orders: Orders Hemoglobin A1c Today E66.09 - Other obesity due to excess calories, F41.1 - Generalized anxiety disorder, I10 - Essential (primary) hypertension, I35.0 - Nonrheumatic aortic (valve) stenosis, R73.03 - Prediabetes, Z68.30 - Body mass index [BMI] 30.0-30.9, adult, Z72.0 - Tobacco use Comprehensive Met. Panel Today E66.09 - Other obesity due to excess calories, F41.1 - Generalized anxiety disorder, I10 - Essential (primary) hypertension, I35.0 - Nonrheumatic aortic (valve) stenosis, R73.03 - Prediabetes, Z68.30 - Body mass index [BMI] 30.0-30.9, adult, Z72.0 - Tobacco use
== END 2025-04-18 15:21 | disposition home or self-care (01) ==
LOC: HO.HMCC 15:01
PROVIDERS: PCP Internal Medicine; Visit Provider Internal Medicine
DX: I10 Essential (primary) hypertension (principal); R73.03 Prediabetes; E66.09 Other obesity due to excess calories; Z68.30 Body mass index [BMI] 30.0-30.9, adult; Z72.0 Tobacco use; I35.0 Nonrheumatic aortic (valve) stenosis

== ENCOUNTER → 2025-04-18 15:01 | Outpatient (BNVA) | payer OTHER, SELFPAY | PROVIDERS: PCP Internal Medicine; Visit Provider Internal Medicine ==

== ENCOUNTER 2025-04-19 14:34 | Outpatient (REF) | payer OTHER, SELFPAY ==
[2025-04-19 16:37] LABS: Estimated Average Glucose 108 mg/dL; Hemoglobin A1c % 5.4 % (<6.0)
[2025-04-19 16:40] LABS: Alanine Aminotransferase 36 U/L (0-40); Albumin Level 4.3 g/dL (3.5-5.0); Alkaline Phosphatase 87 U/L (39-117); Anion Gap 12 (12-20); Aspartate Amino Transferase 34 U/L (5-37); Bilirubin Total 0.8 mg/dL (0.0-1.0); Blood Urea Nitrogen 14 mg/dL (9-16); Calcium 9.6 mg/dL (8.4-10.2); Carbon Dioxide 25 mmol/L (22-29); Chloride 105 mmol/L (96-108); Estimated Glomerular Filt Rate > 60; Glucose Random 92 mg/dL (60-115); Potassium 4.5 mmol/L (3.3-5.1); Sodium 137 mmol/L (135-145); Total Protein 7.1 g/dL (6.5-8.0)
== END 2025-04-19 14:35 | disposition home or self-care (01) ==
LOC: HO.HMGCLDS 14:34
PROVIDERS: PCP Internal Medicine; Visit Provider Internal Medicine
DX: I10 Essential (primary) hypertension (principal); F41.1 Generalized anxiety disorder; R73.03 Prediabetes; I35.0 Nonrheumatic aortic (valve) stenosis; Z72.0 Tobacco use; Z68.30 Body mass index [BMI] 30.0-30.9, adult; E66.09 Other obesity due to excess calories
CPT/HCPCS: 36415; 80053; 83036

== ENCOUNTER 2025-08-16 14:46 | Outpatient (AMB) | payer OTHER, SELFPAY ==
[2025-08-16 15:00] VITALS: BP 124/64; PULSE 72; O2SAT 96; BMI 30.3
--- NOTE | 2025-08-16 15:00 | A.OFFPC_ITS ---
Vital Signs 08/16/25 15:00 Height 5 ft 8 in Weight 199 lb BMI 30.3 BP 124/64 Blood Pressure Location Lt brachial Position Sitting Pulse 72 Pulse Source Pulse Oximeter Pulse Oximetry (%) 96 Oxygen Delivery Method Room Air Intake Visit Reasons: 4m follow up Cut Plug Packer Required: No Accompanied by: Self / Same As Patient Allergies morphine Adverse Reaction (Verified 04/18/25 15:02) Nausea Medication List - Last Reconciled 08/16/25 by Tonya Boucher MD acetaminophen ER (Tylenol 8 Hour) 650 mg PO Q8H amlodipine 10 mg PO DAILY aspirin (Adult Low Dose Aspirin) 81 mg PO DAILY atenolol 25 mg PO DAILY 90 days cholecalciferol (vitamin D3) 25 mcg PO DAILY 90 days lisinopril 40 mg PO DAILY Tobacco use date assessed: 08/16/25 Dental Screening Dental Screen Date: 08/16/25 Did you have a dental visit in the last 12 months?: No Did you have a dental problem in the last 6 months where you did not have access to dental care?: No Was dental information given to patient?: Patient declined HPI 4m follow up HPI Details History of Present Illness The patient is a 59-year-old male presenting for a routine follow-up. Hypertension: - History of hypertension, currently aubree ing medications including amlodipine, atenolol, and lisinopril. - Blood pressure recorded as excellent a t 124/64 mmHg during this visit. - No current symptoms such as swelling o f the ankles. - Regular follow-up for blood pressure m anagement, no recent changes in baseline status. Vitamin D deficiency: - Has been refilling vitamin D3; current ly managing well with supplementation. Medical History: - Hypertension - Vitamin D deficiency Medications: - Amlodipine: for management of hyperten maren - Atenolol: for management of hypertensi on - Lisinopril: for management of hyperten maren - Vitamin D3: for management of vitamin D deficiency Diagnostic Results: - Labs: Kidney functions, blood sugar le vels, and liver function tests done in April were reported as within normal limits. Problem List - Essential Hypertension - Vitamin D deficiency Plan - Continue current medications for hyper tension including amlodipine, atenolol, and lisinopril. - No current need for change in hyperten maren treatment as blood pressure is well-controlled. - Refill of Vitamin D3 confirmed, no fur ther need for intervention as supplementation is effective. - No new blood tests ordered at this vis it; the patient is to complete blood tests at the next appointment set for December. - Declined flu vaccine for this visit. Review of Systems - General: No fever no chills - Neurological: No headaches no dizziness - Ear nose throat: No sore throat no hearing difficulty no ear pain - Cardiovascular: No syncope, no chest pain, no palpitations - Gastrointestinal: No nausea vomiting or diarrhea - Endocrine: No polyuria polydipsia no heat intolerance - Genitourinary: No dysuria , no blood in urine Physical Exam General: No acute distress HEENT: No acute findings Neck: Supple Respiratory system: Able to talk in full sentences, no audible wheeze Cardiovascular: S1-S2 regular in rate and rhythm Gastrointestinal: No pain Extremities: No swelling of ankles RELIGIOUS ASSISTANT: Alert awake oriented x3 motor intact Skin: Normal turgor PFSH Medical History Fluctuating blood pressure Pre-diabetes Surgical History Hx of colonoscopy H/O hemorrhoidectomy Family History Sister Cardiovascular disorder Father Heart attack Social History Housing: Apartment Alcohol intake: never Patient Tobacco Use Status: Former Tobacco user Tobacco use type: Cigarette Cigarettes Per Day: 10 Years Smoked: 40 years Packs per year/per ci.00 e-Cigarette/Vaping Use: Never Used service: No Current occupational status: employed Cognitive needs: No Hearing needs: No Vision needs: Yes Questionnaire Thrive Questionnaire Date Thrive assessed: 12/16/24 I am a: Patient What is your living situation today?: I have a steady place to live Within the past 12 months, did the food you bought not last and you didn't have the money to get more?: Never true Within the past 12 months, did you worry whether your food would run out before you got money to buy more?: Never true Do you have trouble paying for medicines?: No Do you have trouble getting transportation to medical appointments?: No Do you have trouble paying your heating and electricity bill?: No Do you have trouble taking care of your child, family member or friend?: No Do you have trouble with day-to-day activities such as bathing, preparing meals, shopping, managing finances, etc.?: No Are you currently unemployed and looking for a job?: No Are you interested in more education?: No Please select the resources that you would like help with: None Currently or been in a relationship where the following occur: No concerns reported THRIVE Score: 0 LESIA-7 AMB Questionnaire LESIA-7 Date LESIA - 7 assessed: 06/01/24 Source: Developed by Drs. Anthony Khoury, Leanna Dominguez, Ned Lovell and colleagues, with an educational aden from [employer]. Physical exam (Primary Care) Vital Signs: Last Vital Signs Pulse 72 08/16/25 15:00 BP 124/64 08/16/25 15:00 Pulse Ox 96 08/16/25 15:00 Oxygen Delivery Method Room Air 08/16/25 15:00 BMI result Body Mass Index 30.3 Tobacco/Smoking Status: Tobacco use Status Tobacco use date assessed 08/16/25 08/16/25 15:04 Patient Tobacco Use Status Former Tobacco user 08/16/25 15:00 Tobacco use type Cigarette 08/16/25 15:00 e-Cigarette/Vaping Use Never Used 08/16/25 15:00 Thrive Assessment: Date of Thrive Assessment Date Thrive assessed 12/16/24 08/16/25 15:00 Currently or been in a relationship where the following occur: No concerns repor spencer Coding Level of Care Code Est Pt Level 3 (88278) Diagnoses Hypertension, essential I10 Pre-diabetes R73.03 Assessment & Plan Assessment & Plan (1) Hypertension, essential: Code(s): I10 - Essential (primary) hypertension Category: Medical (2) Pre-diabetes: Code(s): R73.03 - Prediabetes Category: Medical Plan Hypertension: - History of hypertension, currently taking medications including amlodipine, atenolol, and lisinopril. - Blood pressure recorded as excellent at 124/64 mmHg during this visit. - No current symptoms such as swelling of the ankles. - Regular follow-up for blood pressure management, no recent changes in baseline status. Vitamin D deficiency: - Has been refilling vitamin D3; currently managing well with supplementation. Medical History: - Hypertension - Vitamin D deficiency Medications: - Amlodipine: for management of hypertension - Atenolol: for management of hypertension - Lisinopril: for management of hypertension - Vitamin D3: for management of vitamin D deficiency Diagnostic Results: - Labs: Kidney functions, blood sugar levels, and liver function tests done in April were reported as within normal limits. Problem List - Essential Hypertension - Vitamin D deficiency Plan - Continue current medications for hypertension including amlodipine, atenolol, and lisinopril. - No current need for change in hypertension treatment as blood pressure is well-controlled. - Refill of Vitamin D3 confirmed, no further need for intervention as supplementation is effective. - No new blood tests ordered at this visit; the patient is to complete blood tests at the next appointment set for December. - Declined flu vaccine for this visit. Orders: Orders Complete Blood Count Auto Diff 4 Months I10 - Essential (primary) hypertension, R73.03 - Prediabetes Comprehensive Rowe. Panel Fast 4 Months I10 - Essential (primary) hypertension, R73.03 - Prediabetes Lipid Panel 4 Months I10 - Essential (primary) hypertension, R73.03 - Prediabetes Medications: Refilled cholecalciferol (vitamin D3) 25 mcg PO DAILY 90 caps 1RF 90 days
--- OUTSIDE RECORDS SUMMARY | 2025-08-16 18:30 | XMS_ITS | Patient Health Record ---
Author Organization [facility] Address [address] [place] [address] Care Team Providers Care Marketing Outreach Coordinator Name Role Phone Sander ACEVES, Asma Primary Care Provider Eliazar Cruz Jr Unavailable [phone] Reason For Referral No Information Medications Medication SIG (Take, Route, Frequency, Duration) Notes Start Date End Date Status Lisinopril 40 MG 1 tablet Orally Once a day Active metFORMIN HCl 500 MG 1 tablet with meals Orally Once a day Active Colyte with Flavor Packs 240 GM As directed Orally Over the specified time.; Duration: 1 day(s) Active Aspir-81 81 MG 1 tablet Orally Once a day Active Atenolol 25 MG 1 tablet Orally Once a day Active Social History Tobacco Use: Social History Observation Description Date Details (start date - stop date) Current Smoker NA - NA Tobacco Use/Smoking Question Answer Notes Patient is a current smoker How often do you smoke cigarettes? every day How many cigarettes a day do you smoke? 11-20 How soon after you wake up d o you smoke your first cigarette? 31-60 minutes Are you interested in quitting? Thinking about q uitting Alcohol Screen Question Answer Notes Did you have a drink contain ing alcohol in the past year? Yes How often did you have a dri nk containing alcohol in the past year? 2 to 4 times a month (2 points) How many drinks did you have on a typical day when you were drinking in the past year? 1 or 2 drinks (0 point) How often did you have 6 or more drinks on one occasion in the past year? Never (0 point) Points 2 Interpretation Negative Problems Problem Type SNOMED Code ICD Code Onset Dates Problem Status W/U Status Risk Notes Problem Colon cancer screening (628265555) Colon cancer screening (Z12.11) Active confirmed Plan Of Treatment Future Test Test Name Order Date COLONOSCOPY 08/19/2017 Insurance Providers Payer Name Payer Address Payer Phone Subscriber Number Group Number Insured Name Patient Relationship to Insured Coverage Start Date Coverage End Date [employer] [facility] [address] [place] [phone] [id number] DURGA FRAZIER Self - patient is the insured Medical (General) History Medical History History ICD Code Denies [place],CVA,Lung disease,renal disease diabetes mellitus diverticulitis hypertension Surgical History Surgery Date(Month/Year) hemorrhoidectomy
== END 2025-08-16 15:24 | disposition home or self-care (01) ==
LOC: HO.HMCC 14:47
PROVIDERS: PCP Internal Medicine; Visit Provider Internal Medicine
DX: I10 Essential (primary) hypertension (principal); R73.03 Prediabetes